=== PATIENT | male | born 2000 | race Caucasian/White ===

== ENCOUNTER 2018-03-23 13:31 | Inpatient (IN) ==
[2018-03-23] MEDS ORDERED: ONDANSETRON INJ 2 MG/ML 2 ML VIAL IV STA (13:43)
[2018-03-23] MEDS ORDERED: SODIUM CHLORIDE 0.9% 1000ML 1,000 ML IV SCH (13:45)
[2018-03-23] MEDS ORDERED: FAMOTIDINE 20MG/5ML IV PUSH IV STA (13:47)
[2018-03-23] MEDS ORDERED: PANTOprazole 40 MG in SYRINGE 0 ML IV ONE (13:47)
[2018-03-23] MEDS ORDERED: SODIUM CHLORIDE 0.9% 1000ML 1,000 ML IV ONE (13:50)
[2018-03-23 13:59] LABS: Basophils # (auto) 0.03 K/uL (0-0.2); Basophils % (auto) 0.6 %; Eosinophils # (auto) 0.06 K/uL (0-0.5); Eosinophils % (auto) 1.2 %; Hematocrit (blood only) 44.4 % (42-52); Hemoglobin 15.4 g/dL (14.0-18.0); Immature Granulocytes # (auto) 0.01 K/uL (0.00-0.02); Immature Granulocytes % (auto) 0.2 %; Lymphocytes # (auto) 2.29 K/uL (1.2-3.4); Lymphocytes % (auto) 44.4 %; Mean Corpuscular Hgb Conc 34.7 g/dL (32-36); Mean Corpuscular Volume 93.1 fL (80-100); Monocytes # (auto) 0.36 K/uL (0.11-0.59); Neutrophils # (auto) 2.41 K/uL (1.4-6.5); Neutrophils % (auto) 46.6 %; Platelet Count 213 K/uL (130-400); RDW Coefficient of Variation 13.2 % (11.5-14.5); RDW Standard Deviation 44.9 fL (36.4-46.3); Red Blood Count 4.77 M/uL (4.7-6.1); White Blood Count 5.16 K/uL (4.8-10.8)
[2018-03-23 14:05] LABS: INR 1.1 (0.9-1.1)
[2018-03-23 14:21] LABS: Alanine Aminotransferase 32 U/L (12-78); Aspartate Aminotransferase 19 U/L (15-37); BUN Creatinine Ratio 15.3 (10-20); Blood Urea Nitrogen 15 mg/dl (7-18); Calcium 8.9 mg/dl (8.5-10.1); Carbon Dioxide 26 mmol/L (21-32); Chloride 109 mmol/L (98-107); Creatinine Clr Calc Pharmacy 129.1 ml/min; Est GFR (Non-African American) 111.3; Glucose 87 mg/dl (70-99); Potassium 3.8 mmol/L (3.5-5.1); Sodium 141 mmol/L (136-145)
[2018-03-23 14:26] LABS: Albumin Globulin Ratio 1.1 (0.9-2); Alkaline Phosphatase 59 U/L (45-117); Bilirubin,Total 0.5 mg/dl (0.2-1); Creatine Kinase 345 U/L (39-308); Globulin 3.6 gm/dl (2.5-4.0); Total Protein 7.6 gm/dl (6.4-8.2); Troponin I < 0.015 ng/ml (0-0.045)
--- NOTE | 2018-03-23 14:27 | Emergency Department Note ---
Entered by Maki Mejias acting as a scribe for Eagle Farooq DO History of Present Illness General Chief complaint: Overdose (Intentional) Source: patient History of Present Illness Onset (ago): hour(s) 1 Location: head (Overdose) Severity: severe Pain Consistency: + other (Sudden) Maximum Pain Intensity: 0 Quality: + other (Overdose) Relieved By: not by medication (Aspirin) Exacerbated By: + movement (Aspirin) Associated symptoms: + nausea/vomiting and + other (Dizziness); no chest pain, no fever/chills and no shortness of breath The patient is a 17-year-old male who presented to the emergency department after an intentional overdose. The patient admits to taking approximately 150 tablets of aspirin. The aspirin was 325 mg strength. He states that he took this overdose at approximately 1230 this afternoon. The patient was feeling very depressed. He is been feeling very depressed for the last few months. He currently moved to [place] to be in college. He previously lived in [place]. He did have similar symptoms in the past and was admitted for mental health evaluation approximately 5 years ago when he was at home in [place]. The patient has been having worsening depression and anxiety. He is feeling alone in college. He states that his symptoms started to worsen over the last 24 hours. He states that he did vomit one time but it was only a small amount of liquid vomit that had some pill fragments in it. He states that he did try to swallow the pill fragments again. The patient called 911 and was brought to the emergency department. He has had no other symptoms of emesis but does state that he feels somewhat dizzy and also has been developing nausea symptoms. The patient denies having any other symptoms as far as chest pain or fever. He denies having any shortness of breath or leg swelling. He denies having any GI upset or back pain. His symptoms are very severe at this time. Home Medications Home Medications Medication Instructions Recorded Confirmed Type No Known Home Medications 03/23/18 03/23/18 History Allergies Allergy/AdvReac Type Severity Reaction Status Date / Time No Known Allergies Allergy Verified 03/23/18 15:03 Past Med/Surg History Medical History Depression Social History Current Living Situation: Alone Current Living Situation Comment: Says he has no social supports here, "never felt a part of a family unit" current occupational status: student current occupation: Works at [employer] Feels Safe at Home: Yes Smoking Status: Never smoker Hx Alcohol Use: Yes Alcohol type: beer Alcohol Intake Frequency: a few times a month Hx Substance Use: No Beliefs That Will Affect Care: None Preferred Language: Jordanian Communication Ability: Effective Blade Aligner Required: No Review of Systems See HPI for pertinent positives & negatives. and A total of 10 systems reviewed and were otherwise negative Physical Exam Vital Signs Vital Signs - 24 hr 03/25/18 11:03 Temperature 36.8 C Pulse Rate [Apical] 70 Respiratory Rate 16 Blood Pressure [Right Arm] 108/64 Pulse Oximetry 96 GENERAL: Patient is awake and alert. He is very flat and appears to be mildly anxious. EYES: The conjunctivae are clear. The pupils are round and reactive. EARS, NOSE, MOUTH AND THROAT: The nose is without any evidence of any deformity. Mucous membranes are moist tongue is midline NECK: The neck is nontender and supple. RESPIRATORY: Normal respiratory effort is noted there is no evidence of wheezing rhonchi or rales CARDIOVASCULAR: Regular rate and rhythm noted there no murmurs rubs or gallops normal S1 normal S2 GASTROINTESTINAL: The abdomen is soft. Bowel sounds are present in all quadrants. Abdomen is nontender MUSCULOSKELETAL/EXTREMITIES: There is no evidence of gross deformity full range of motion is noted in the hips and shoulders SKIN: There is no obvious evidence of any rash. There are no petechiae, pallor or cyanosis noted. NEUROLOGIC: Patient is awake alert and oriented x3 strength is symmetric patellar reflexes are 2+ bilaterally PSYCH: Patient is very guarded appearing. His affect is flat. He is currently admitting to suicidal ideation with the above aforementioned plan. Course 1345: Past medical records reviewed. The patient was evaluated in room B3A, and a complete history and physical examination were performed. 1430: I called poison control who recommended that the patient not receive charcoal in regards to his Aspirin OD. 1446: I spoke to Rissa from poison control who recommends that the patient gets his Aspirin level check again. 1500: I spoke to the nurse at this time who informed me that the patient asked for something for his stomach pain. I will order a GI cocktail. 1632: I spoke with poison control who recommends that the patient be started on a bicarbonate drip. 1642: I reviewed the patient's [facility]. 1646: I spoke with the psychiatric employment case manager who reported that the police filed an active 302 warrant which is on the patients chart at this time. 1650: I reviewed the patient's case with Dr. Ishan RODRIGUEZ diesel powerplant supervisor. 1655: I reviewed the patient's case with [facility] Warner [facility]. He will evaluate the patient for further management. Administered Medications Discontinued Medications Acetaminophen (Tylenol) 650 mg PO Q4H PRN PRN Reason: pain/fever Stop: 04/22/18 19:55 Last Admin: 03/25/18 09:43 Dose: 650 mg Al Hydrox/Mg Hydrox/Simethicone () 1 dose PO ONE ONE Stop: 03/23/18 15:01 Last Admin: 03/23/18 15:07 Dose: 1 dose Famotidine (Pepcid 20mg Iv Push) 20 mg IV ONE STA Stop: 03/23/18 13:48 Last Admin: 03/23/18 14:14 Dose: 20 mg Sodium Chloride (Nss 1000ml) 1,000 mls @ 999 mls/hr IV .Q1H1M BECKA Stop: 03/23/18 14:45 Last Infusion: 03/23/18 15:45 Dose: 0 mls/hr Admin: 03/23/18 15:07 Dose: 999 mls/hr Pantoprazole Sodium 40 mg/ (Syringe) 10 mls @ 5 mls/min IV NOW ONE Stop: 03/23/18 13:48 Last Admin: 03/23/18 14:14 Dose: 5 mls/min Sodium Chloride (Nss 1000ml) 1,000 mls @ 999 mls/hr IV .Q1H1M ONE Stop: 03/23/18 14:50 Last Infusion: 03/23/18 15:09 Dose: 0 mls/hr Admin: 03/23/18 14:08 Dose: 999 mls/hr Sodium Bicarbonate 150 meq/ (Dextrose) 1,150 mls @ 999 mls/hr IV .Q1H10M BECKA Stop: 03/23/18 18:15 Last Infusion: 03/24/18 01:48 Dose: 0 mls/hr Infusion: 03/23/18 17:17 Dose: 999 mls/hr Admin: 03/23/18 17:04 Dose: 250 mls/hr Sodium Bicarbonate 150 meq/ (Dextrose) 1,150 mls @ 250 mls/hr IV .Q4H36M BECKA Stop: 04/22/18 18:14 Last Infusion: 03/24/18 10:32 Dose: 0 mls/hr Admin: 03/24/18 09:55 Dose: Not Given Admin: 03/24/18 06:46 Dose: 250 mls/hr Infusion: 03/24/18 06:27 Dose: 0 mls/hr Infusion: 03/24/18 06:12 Dose: 250 mls/hr Infusion: 03/24/18 03:40 Dose: 150 mls/hr Admin: 03/24/18 00:50 Dose: 250 mls/hr Infusion: 03/23/18 23:13 Dose: 0 mls/hr Admin: 03/23/18 18:37 Dose: 250 mls/hr Promethazine HCl 12.5 mg/ (Sodium Chloride) 50.5 mls @ 202 mls/hr IV NOW STA Stop: 03/23/18 18:59 Last Admin: 03/23/18 18:50 Dose: Not Given Pantoprazole Sodium 40 mg/ (Syringe) 10 mls @ 5 mls/min IV BID BECKA Stop: 04/22/18 20:59 Last Admin: 03/25/18 09:42 Dose: 5 mls/min Admin: 03/24/18 19:27 Dose: 5 mls/min Admin: 03/24/18 07:56 Dose: 5 mls/min Admin: 03/23/18 21:13 Dose: 5 mls/min Dextrose (D5w) 1,000 mls @ 999 mls/hr IV .Q1H1M BECKA Stop: 03/23/18 21:15 Last Infusion: 03/24/18 08:58 Dose: 0 mls/hr Infusion: 03/23/18 21:47 Dose: 0 mls/hr Admin: 03/23/18 21:13 Dose: 999 mls/hr Potassium Chloride (K Lane / Wtr) 10 meq in 100 mls @ 100 mls/hr IV Q1H BECKA Stop: 03/24/18 00:59 Last Infusion: 03/24/18 01:23 Dose: 0 mls/hr Admin: 03/24/18 00:23 Dose: 100 mls/hr Infusion: 03/24/18 00:12 Dose: 0 mls/hr Admin: 03/23/18 23:12 Dose: 100 mls/hr Infusion: 03/23/18 23:12 Dose: 0 mls/hr Admin: 03/23/18 22:14 Dose: 100 mls/hr Infusion: 03/23/18 22:12 Dose: 0 mls/hr Admin: 03/23/18 21:12 Dose: 100 mls/hr Potassium Chloride (K Lane / Wtr) 10 meq in 100 mls @ 100 mls/hr IV Q1H BECKA Stop: 03/24/18 07:34 Last Infusion: 03/24/18 07:56 Dose: 0 mls/hr Admin: 03/24/18 06:47 Dose: 100 mls/hr Infusion: 03/24/18 06:45 Dose: 0 mls/hr Admin: 03/24/18 05:45 Dose: 100 mls/hr Infusion: 03/24/18 05:39 Dose: 0 mls/hr Admin: 03/24/18 04:39 Dose: 100 mls/hr Infusion: 03/24/18 04:39 Dose: 0 mls/hr Admin: 03/24/18 03:44 Dose: 100 mls/hr Calcium Chloride 1,000 mg/ (Sodium Chloride) 60 mls @ 240 mls/hr IV NOW STA Stop: 03/24/18 07:45 Last Infusion: 03/24/18 08:06 Dose: 0 mls/hr Admin: 03/24/18 07:50 Dose: 240 mls/hr Dextrose/Sodium Chloride (D5w And Nss) 1,000 mls @ 125 mls/hr IV .Q8H BECKA Stop: 04/23/18 10:59 Last Admin: 03/25/18 03:23 Dose: 125 mls/hr Infusion: 03/25/18 03:23 Dose: 125 mls/hr Admin: 03/24/18 19:26 Dose: 125 mls/hr Infusion: 03/24/18 18:58 Dose: 125 mls/hr Admin: 03/24/18 10:58 Dose: 125 mls/hr Ondansetron HCl (Zofran) 4 mg IV NOW STA Stop: 03/23/18 13:44 Last Admin: 03/23/18 14:14 Dose: 4 mg Potassium Chloride (Klor-Con Pwd) 60 meq PO ONCE STA Stop: 03/23/18 19:57 Last Admin: 03/23/18 21:57 Dose: Not Given Potassium Chloride (Klor-Con Pwd) 60 meq PO ONCE STA Stop: 03/24/18 00:38 Last Admin: 03/24/18 00:51 Dose: 60 meq Potassium Chloride (Klor-Con Pwd) 20 meq PO ONCE STA Stop: 03/24/18 03:35 Last Admin: 03/24/18 03:43 Dose: 20 meq Potassium Chloride (Klor-Con Pwd) 20 meq PO ONCE STA Stop: 03/24/18 06:45 Last Admin: 03/24/18 06:47 Dose: 20 meq Potassium Chloride (Klor-Con M10) 40 meq PO NOW STA Stop: 03/24/18 10:44 Last Admin: 03/24/18 10:59 Dose: 40 meq Promethazine HCl (Phenergan) Confirm Administered Dose 12.5 mg IV .[employer] ONE Stop: 03/23/18 18:50 Last Admin: 03/23/18 18:50 Dose: 12.5 mg Medical Decision Making Differential Diagnosis Etiologies such as mood disorder, toxicologic, infection, hypoglycemia, electrolyte abnormalities, cardiac sources, intracerebral event, neurologic, as well as others were entertained. Medical Records Attestation: I reviewed the patient's medical records. Home Medications Current Medication List: was personally reviewed by me Laboratory Data Attestation: I reviewed the patient's lab results. Result diagrams: 03/24/18 05:54 03/25/18 08:23 Lab Results 03/23/18 03/23/18 03/23/18 Range/Units 13:22 13:22 13:22 WBC 5.16 (4.8-10.8) K/uL RBC 4.77 (4.7-6.1) M/uL Hgb 15.4 (14.0-18.0) g/dL Hct 44.4 (42-52) % MCV 93.1 (80-100) fL MCH 32.3 (25-34) pg MCHC 34.7 (32-36) g/dL RDW Std Deviation 44.9 (36.4-46.3) fL RDW Coeff of Mani 13.2 (11.5-14.5) % Plt Count 213 (130-400) K/uL MPV 11.0 H (7.4-10.4) fL Immature Gran % (Auto) 0.2 % Neut % (Auto) 46.6 % Lymph % (Auto) 44.4 % Bowie % (Auto) 7.0 % Eos % (Auto) 1.2 % Baso % (Auto) 0.6 % Immature Gran # (Auto) 0.01 (0.00-0.02) K/uL Neut # (Auto) 2.41 (1.4-6.5) K/uL Lymph # (Auto) 2.29 (1.2-3.4) K/uL Bowie # (Auto) 0.36 (0.11-0.59) K/uL Eos # (Auto) 0.06 (0-0.5) K/uL Baso # (Auto) 0.03 (0-0.2) K/uL PT 11.0 (9.0-12.0) Seconds INR 1.1 (0.9-1.1) VBG pH (7.36-7.41) VBG pCO2 (38-50) mmHg VBG pO2 mmHg VBG HCO3 mmol/L VBG O2 Saturation % VBG Base Excess mEq/L Barometric Pressure mm/Hg Sodium 141 (136-145) mmol/L Potassium 3.8 (3.5-5.1) mmol/L Chloride 109 H (98-107) mmol/L Carbon Dioxide 26 (21-32) mmol/L Anion Gap 6.0 (3-11) BUN 15 (7-18) mg/dl Creatinine 0.98 (0.6-1.4) mg/dl Est Cr Clr Drug Dosing 129.1 ml/min Est GFR ( Amer) 129.0 Est GFR (Non-Af Amer) 111.3 BUN/Creatinine Ratio 15.3 (10-20) Glucose 87 (70-99) mg/dl Lactate (0.4-2.0) mmol/L Calcium 8.9 (8.5-10.1) mg/dl Phosphorus (2.5-4.9) mg/dl Magnesium 2.0 (1.8-2.4) mg/dl Total Bilirubin 0.5 (0.2-1) mg/dl AST 19 (15-37) U/L ALT 32 (12-78) U/L Alkaline Phosphatase 59 (45-117) U/L Total Creatine Kinase 345 H (39-308) U/L Troponin I < 0.015 (0-0.045) ng/ml Total Protein 7.6 (6.4-8.2) gm/dl Albumin 4.0 (3.4-5.0) gm/dl Globulin 3.6 (2.5-4.0) gm/dl Albumin/Globulin Ratio 1.1 (0.9-2) Lipase 61 L (73-393) U/L Urine Color Urine Appearance (Clear) Urine pH (4.5-7.5) Ur Specific Jackson (1.000-1.030) Urine Protein (Negative) Urine Glucose (UA) (Negative) Urine Ketones (Negative) Urine Blood (Negative) Urine Nitrite (Negative) Urine Bilirubin (Negative) Urine Urobilinogen (Negative) Ur Leukocyte Esterase (Negative) Urine WBC (Auto) (0-5) /hpf Urine RBC (Auto) (0-4) /hpf U Hyaline Cast (Auto) (0-5) /lpf U Epithel Cells (Auto) (0-5) /lpf Urine Bacteria (Auto) (Negative) Ur Renal Epithelial Cell Amorphous Sediment (None Prsent) Nasal Screen MRSA (PCR) (Negative) Salicylates (2.8-20) mg/dl Urine Opiates Screen (Neg) Ur Methadone, Qual (Neg) Acetaminophen (10-30) ug/ml Urine Barbiturates (Neg) Ur Phencyclidine (PCP) (Neg) U Amphetamin/Meth Scrn (Neg) MDMA (Ecstasy) Screen (Neg) U Benzodiazepines Scrn (Neg) Ur Cocaine Metabolite (Neg) U Marijuana (THC) Screen (Neg) Ethyl Alcohol mg/dL (0-3) mg/dl 03/23/18 03/23/18 03/23/18 Range/Units 13:22 14:03 14:03 WBC (4.8-10.8) K/uL RBC (4.7-6.1) M/uL Hgb (14.0-18.0) g/dL Hct (42-52) % MCV (80-100) fL MCH (25-34) pg MCHC (32-36) g/dL RDW Std Deviation (36.4-46.3) fL RDW Coeff of Mani (11.5-14.5) % Plt Count (130-400) K/uL MPV (7.4-10.4) fL Immature Gran % (Auto) % Neut % (Auto) % Lymph % (Auto) % Bowie % (Auto) % Eos % (Auto) % Baso % (Auto) % Immature Gran # (Auto) (0.00-0.02) K/uL Neut # (Auto) (1.4-6.5) K/uL Lymph # (Auto) (1.2-3.4) K/uL Bowie # (Auto) (0.11-0.59) K/uL Eos # (Auto) (0-0.5) K/uL Baso # (Auto) (0-0.2) K/uL PT (9.0-12.0) Seconds INR (0.9-1.1) VBG pH 7.40 (7.36-7.41) VBG pCO2 43 (38-50) mmHg VBG pO2 37 mmHg VBG HCO3 26 mmol/L VBG O2 Saturation 70.5 % VBG Base Excess 1.3 mEq/L Barometric Pressure 730.9 mm/Hg Sodium (136-145) mmol/L Potassium (3.5-5.1) mmol/L Chloride (98-107) mmol/L Carbon Dioxide (21-32) mmol/L Anion Gap (3-11) BUN (7-18) mg/dl Creatinine (0.6-1.4) mg/dl Est Cr Clr Drug Dosing ml/min Est GFR ( Amer) Est GFR (Non-Af Amer) BUN/Creatinine Ratio (10-20) Glucose (70-99) mg/dl Lactate (0.4-2.0) mmol/L Calcium (8.5-10.1) mg/dl Phosphorus (2.5-4.9) mg/dl Magnesium (1.8-2.4) mg/dl Total Bilirubin (0.2-1) mg/dl AST (15-37) U/L ALT (12-78) U/L Alkaline Phosphatase (45-117) U/L Total Creatine Kinase (39-308) U/L Troponin I (0-0.045) ng/ml Total Protein (6.4-8.2) gm/dl Albumin (3.4-5.0) gm/dl Globulin (2.5-4.0) gm/dl Albumin/Globulin Ratio (0.9-2) Lipase (73-393) U/L Urine Color Urine Appearance (Clear) Urine pH (4.5-7.5) Ur Specific Jackson (1.000-1.030) Urine Protein (Negative) Urine Glucose (UA) (Negative) Urine Ketones (Negative) Urine Blood (Negative) Urine Nitrite (Negative) Urine Bilirubin (Negative) Urine Urobilinogen (Negative) Ur Leukocyte Esterase (Negative) Urine WBC (Auto) (0-5) /hpf Urine RBC (Auto) (0-4) /hpf U Hyaline Cast (Auto) (0-5) /lpf U Epithel Cells (Auto) (0-5) /lpf Urine Bacteria (Auto) (Negative) Ur Renal Epithelial Cell Amorphous Sediment (None Prsent) Nasal Screen MRSA (PCR) (Negative) Salicylates 18.9 (2.8-20) mg/dl Urine Opiates Screen (Neg) Ur Methadone, Qual (Neg) Acetaminophen < 2 L (10-30) ug/ml Urine Barbiturates (Neg) Ur Phencyclidine (PCP) (Neg) U Amphetamin/Meth Scrn (Neg) MDMA (Ecstasy) Screen (Neg) U Benzodiazepines Scrn (Neg) Ur Cocaine Metabolite (Neg) U Marijuana (THC) Screen (Neg) Ethyl Alcohol mg/dL < 3.0 (0-3) mg/dl 03/23/18 03/23/18 03/23/18 Range/Units 14:03 14:44 15:24 WBC (4.8-10.8) K/uL RBC (4.7-6.1) M/uL Hgb (14.0-18.0) g/dL Hct (42-52) % MCV (80-100) fL MCH (25-34) pg MCHC (32-36) g/dL RDW Std Deviation (36.4-46.3) fL RDW Coeff of Mani (11.5-14.5) % Plt Count (130-400) K/uL MPV (7.4-10.4) fL Immature Gran % (Auto) % Neut % (Auto) % Lymph % (Auto) % Bowie % (Auto) % Eos % (Auto) % Baso % (Auto) % Immature Gran # (Auto) (0.00-0.02) K/uL Neut # (Auto) (1.4-6.5) K/uL Lymph # (Auto) (1.2-3.4) K/uL Bowie # (Auto) (0.11-0.59) K/uL Eos # (Auto) (0-0.5) K/uL Baso # (Auto) (0-0.2) K/uL PT (9.0-12.0) Seconds INR (0.9-1.1) VBG pH (7.36-7.41) VBG pCO2 (38-50) mmHg VBG pO2 mmHg VBG HCO3 mmol/L VBG O2 Saturation % VBG Base Excess mEq/L Barometric Pressure mm/Hg Sodium (136-145) mmol/L Potassium (3.5-5.1) mmol/L Chloride (98-107) mmol/L Carbon Dioxide (21-32) mmol/L Anion Gap (3-11) BUN (7-18) mg/dl Creatinine (0.6-1.4) mg/dl Est Cr Clr Drug Dosing ml/min Est GFR ( Amer) Est GFR (Non-Af Amer) BUN/Creatinine Ratio (10-20) Glucose (70-99) mg/dl Lactate 1.1 (0.4-2.0) mmol/L Calcium (8.5-10.1) mg/dl Phosphorus (2.5-4.9) mg/dl Magnesium (1.8-2.4) mg/dl Total Bilirubin (0.2-1) mg/dl AST (15-37) U/L ALT (12-78) U/L Alkaline Phosphatase (45-117) U/L Total Creatine Kinase (39-308) U/L Troponin I (0-0.045) ng/ml Total Protein (6.4-8.2) gm/dl Albumin (3.4-5.0) gm/dl Globulin (2.5-4.0) gm/dl Albumin/Globulin Ratio (0.9-2) Lipase (73-393) U/L Urine Color Urine Appearance (Clear) Urine pH 7.0 (4.5-7.5) Ur Specific Jackson (1.000-1.030) Urine Protein (Negative) Urine Glucose (UA) (Negative) Urine Ketones (Negative) Urine Blood (Negative) Urine Nitrite (Negative) Urine Bilirubin (Negative) Urine Urobilinogen (Negative) Ur Leukocyte Esterase (Negative) Urine WBC (Auto) (0-5) /hpf Urine RBC (Auto) (0-4) /hpf U Hyaline Cast (Auto) (0-5) /lpf U Epithel Cells (Auto) (0-5) /lpf Urine Bacteria (Auto) (Negative) Ur Renal Epithelial Cell Amorphous Sediment (None Prsent) Nasal Screen MRSA (PCR) (Negative) Salicylates (2.8-20) mg/dl Urine Opiates Screen Neg (Neg) Ur Methadone, Qual Neg (Neg) Acetaminophen (10-30) ug/ml Urine Barbiturates Neg (Neg) Ur Phencyclidine (PCP) Neg (Neg) U Amphetamin/Meth Scrn Neg (Neg) MDMA (Ecstasy) Screen Neg (Neg) U Benzodiazepines Scrn Neg (Neg) Ur Cocaine Metabolite Neg (Neg) U Marijuana (THC) Screen Neg (Neg) Ethyl Alcohol mg/dL (0-3) mg/dl 03/23/18 03/23/18 03/23/18 Range/Units 15:34 18:51 18:51 WBC (4.8-10.8) K/uL RBC (4.7-6.1) M/uL Hgb (14.0-18.0) g/dL Hct (42-52) % MCV (80-100) fL MCH (25-34) pg MCHC (32-36) g/dL RDW Std Deviation (36.4-46.3) fL RDW Coeff of Mani (11.5-14.5) % Plt Count (130-400) K/uL MPV (7.4-10.4) fL Immature Gran % (Auto) % Neut % (Auto) % Lymph % (Auto) % Bowie % (Auto) % Eos % (Auto) % Baso % (Auto) % Immature Gran # (Auto) (0.00-0.02) K/uL Neut # (Auto) (1.4-6.5) K/uL Lymph # (Auto) (1.2-3.4) K/uL Bowie # (Auto) (0.11-0.59) K/uL Eos # (Auto) (0-0.5) K/uL Baso # (Auto) (0-0.2) K/uL PT (9.0-12.0) Seconds INR (0.9-1.1) VBG pH (7.36-7.41) VBG pCO2 (38-50) mmHg VBG pO2 mmHg VBG HCO3 mmol/L VBG O2 Saturation % VBG Base Excess mEq/L Barometric Pressure mm/Hg Sodium (136-145) mmol/L Potassium 3.3 L (3.5-5.1) mmol/L Chloride (98-107) mmol/L Carbon Dioxide (21-32) mmol/L Anion Gap (3-11) BUN (7-18) mg/dl Creatinine (0.6-1.4) mg/dl Est Cr Clr Drug Dosing ml/min Est GFR ( Amer) Est GFR (Non-Af Amer) BUN/Creatinine Ratio (10-20) Glucose (70-99) mg/dl Lactate (0.4-2.0) mmol/L Calcium (8.5-10.1) mg/dl Phosphorus (2.5-4.9) mg/dl Magnesium (1.8-2.4) mg/dl Total Bilirubin (0.2-1) mg/dl AST (15-37) U/L ALT (12-78) U/L Alkaline Phosphatase (45-117) U/L Total Creatine Kinase (39-308) U/L Troponin I (0-0.045) ng/ml Total Protein (6.4-8.2) gm/dl Albumin (3.4-5.0) gm/dl Globulin (2.5-4.0) gm/dl Albumin/Globulin Ratio (0.9-2) Lipase (73-393) U/L Urine Color Urine Appearance (Clear) Urine pH (4.5-7.5) Ur Specific Jackson (1.000-1.030) Urine Protein (Negative) Urine Glucose (UA) (Negative) Urine Ketones (Negative) Urine Blood (Negative) Urine Nitrite (Negative) Urine Bilirubin (Negative) Urine Urobilinogen (Negative) Ur Leukocyte Esterase (Negative) Urine WBC (Auto) (0-5) /hpf Urine RBC (Auto) (0-4) /hpf U Hyaline Cast (Auto) (0-5) /lpf U Epithel Cells (Auto) (0-5) /lpf Urine Bacteria (Auto) (Negative) Ur Renal Epithelial Cell Amorphous Sediment (None Prsent) Nasal Screen MRSA (PCR) (Negative) Salicylates 31.0 H* 64.6 H* (2.8-20) mg/dl Urine Opiates Screen (Neg) Ur Methadone, Qual (Neg) Acetaminophen (10-30) ug/ml Urine Barbiturates (Neg) Ur Phencyclidine (PCP) (Neg) U Amphetamin/Meth Scrn (Neg) MDMA (Ecstasy) Screen (Neg) U Benzodiazepines Scrn (Neg) Ur Cocaine Metabolite (Neg) U Marijuana (THC) Screen (Neg) Ethyl Alcohol mg/dL (0-3) mg/dl 03/23/18 03/23/18 03/23/18 Range/Units 18:51 19:57 19:57 WBC (4.8-10.8) K/uL RBC (4.7-6.1) M/uL Hgb (14.0-18.0) g/dL Hct (42-52) % MCV (80-100) fL MCH (25-34) pg MCHC (32-36) g/dL RDW Std Deviation (36.4-46.3) fL RDW Coeff of Mani (11.5-14.5) % Plt Count (130-400) K/uL MPV (7.4-10.4) fL Immature Gran % (Auto) % Neut % (Auto) % Lymph % (Auto) % Bowie % (Auto) % Eos % (Auto) % Baso % (Auto) % Immature Gran # (Auto) (0.00-0.02) K/uL Neut # (Auto) (1.4-6.5) K/uL Lymph # (Auto) (1.2-3.4) K/uL Bowie # (Auto) (0.11-0.59) K/uL Eos # (Auto) (0-0.5) K/uL Baso # (Auto) (0-0.2) K/uL PT (9.0-12.0) Seconds INR (0.9-1.1) VBG pH 7.46 H 7.46 H (7.36-7.41) VBG pCO2 35 L (38-50) mmHg VBG pO2 34 mmHg VBG HCO3 24 mmol/L VBG O2 Saturation 68.4 % VBG Base Excess 0.9 mEq/L Barometric Pressure 730.8 mm/Hg Sodium 140 (136-145) mmol/L Potassium 3.2 L (3.5-5.1) mmol/L Chloride 113 H (98-107) mmol/L Carbon Dioxide 25 (21-32) mmol/L Anion Gap 2.0 L (3-11) BUN 13 (7-18) mg/dl Creatinine 1.12 (0.6-1.4) mg/dl Est Cr Clr Drug Dosing 113.0 ml/min Est GFR ( Amer) 109.8 Est GFR (Non-Af Amer) 94.7 BUN/Creatinine Ratio 11.2 (10-20) Glucose 102 H (70-99) mg/dl Lactate (0.4-2.0) mmol/L Calcium 7.9 L (8.5-10.1) mg/dl Phosphorus (2.5-4.9) mg/dl Magnesium (1.8-2.4) mg/dl Total Bilirubin (0.2-1) mg/dl AST (15-37) U/L ALT (12-78) U/L Alkaline Phosphatase (45-117) U/L Total Creatine Kinase (39-308) U/L Troponin I (0-0.045) ng/ml Total Protein (6.4-8.2) gm/dl Albumin (3.4-5.0) gm/dl Globulin (2.5-4.0) gm/dl Albumin/Globulin Ratio (0.9-2) Lipase (73-393) U/L Urine Color Urine Appearance (Clear) Urine pH (4.5-7.5) Ur Specific Jackson (1.000-1.030) Urine Protein (Negative) Urine Glucose (UA) (Negative) Urine Ketones (Negative) Urine Blood (Negative) Urine Nitrite (Negative) Urine Bilirubin (Negative) Urine Urobilinogen (Negative) Ur Leukocyte Esterase (Negative) Urine WBC (Auto) (0-5) /hpf Urine RBC (Auto) (0-4) /hpf U Hyaline Cast (Auto) (0-5) /lpf U Epithel Cells (Auto) (0-5) /lpf Urine Bacteria (Auto) (Negative) Ur Renal Epithelial Cell Amorphous Sediment (None Prsent) Nasal Screen MRSA (PCR) (Negative) Salicylates (2.8-20) mg/dl Urine Opiates Screen (Neg) Ur Methadone, Qual (Neg) Acetaminophen (10-30) ug/ml Urine Barbiturates (Neg) Ur Phencyclidine (PCP) (Neg) U Amphetamin/Meth Scrn (Neg) MDMA (Ecstasy) Screen (Neg) U Benzodiazepines Scrn (Neg) Ur Cocaine Metabolite (Neg) U Marijuana (THC) Screen (Neg) Ethyl Alcohol mg/dL (0-3) mg/dl 03/23/18 03/23/18 03/23/18 Range/Units 20:10 21:16 23:03 WBC (4.8-10.8) K/uL RBC (4.7-6.1) M/uL Hgb (14.0-18.0) g/dL Hct (42-52) % MCV (80-100) fL MCH (25-34) pg MCHC (32-36) g/dL RDW Std Deviation (36.4-46.3) fL RDW Coeff of Mani (11.5-14.5) % Plt Count (130-400) K/uL MPV (7.4-10.4) fL Immature Gran % (Auto) % Neut % (Auto) % Lymph % (Auto) % Bowie % (Auto) % Eos % (Auto) % Baso % (Auto) % Immature Gran # (Auto) (0.00-0.02) K/uL Neut # (Auto) (1.4-6.5) K/uL Lymph # (Auto) (1.2-3.4) K/uL Bowie # (Auto) (0.11-0.59) K/uL Eos # (Auto) (0-0.5) K/uL Baso # (Auto) (0-0.2) K/uL PT (9.0-12.0) Seconds INR (0.9-1.1) VBG pH 7.47 H (7.36-7.41) VBG pCO2 33 L (38-50) mmHg VBG pO2 37 mmHg VBG HCO3 24 mmol/L VBG O2 Saturation 73.0 % VBG Base Excess 0.8 mEq/L Barometric Pressure mm/Hg Sodium (136-145) mmol/L Potassium (3.5-5.1) mmol/L Chloride (98-107) mmol/L Carbon Dioxide (21-32) mmol/L Anion Gap (3-11) BUN (7-18) mg/dl Creatinine (0.6-1.4) mg/dl Est Cr Clr Drug Dosing ml/min Est GFR ( Amer) Est GFR (Non-Af Amer) BUN/Creatinine Ratio (10-20) Glucose (70-99) mg/dl Lactate (0.4-2.0) mmol/L Calcium (8.5-10.1) mg/dl Phosphorus (2.5-4.9) mg/dl Magnesium (1.8-2.4) mg/dl Total Bilirubin (0.2-1) mg/dl AST (15-37) U/L ALT (12-78) U/L Alkaline Phosphatase (45-117) U/L Total Creatine Kinase (39-308) U/L Troponin I (0-0.045) ng/ml Total Protein (6.4-8.2) gm/dl Albumin (3.4-5.0) gm/dl Globulin (2.5-4.0) gm/dl Albumin/Globulin Ratio (0.9-2) Lipase (73-393) U/L Urine Color Urine Appearance (Clear) Urine pH (4.5-7.5) Ur Specific Jackson (1.000-1.030) Urine Protein (Negative) Urine Glucose (UA) (Negative) Urine Ketones (Negative) Urine Blood (Negative) Urine Nitrite (Negative) Urine Bilirubin (Negative) Urine Urobilinogen (Negative) Ur Leukocyte Esterase (Negative) Urine WBC (Auto) (0-5) /hpf Urine RBC (Auto) (0-4) /hpf U Hyaline Cast (Auto) (0-5) /lpf U Epithel Cells (Auto) (0-5) /lpf Urine Bacteria (Auto) (Negative) Ur Renal Epithelial Cell Amorphous Sediment (None Prsent) Nasal Screen MRSA (PCR) Negative (Negative) Salicylates 59.4 H* (2.8-20) mg/dl Urine Opiates Screen (Neg) Ur Methadone, Qual (Neg) Acetaminophen (10-30) ug/ml Urine Barbiturates (Neg) Ur Phencyclidine (PCP) (Neg) U Amphetamin/Meth Scrn (Neg) MDMA (Ecstasy) Screen (Neg) U Benzodiazepines Scrn (Neg) Ur Cocaine Metabolite (Neg) U Marijuana (THC) Screen (Neg) Ethyl Alcohol mg/dL (0-3) mg/dl 03/23/18 03/23/18 03/23/18 Range/Units 23:03 23:03 Unknown WBC (4.8-10.8) K/uL RBC (4.7-6.1) M/uL Hgb (14.0-18.0) g/dL Hct (42-52) % MCV (80-100) fL MCH (25-34) pg MCHC (32-36) g/dL RDW Std Deviation (36.4-46.3) fL RDW Coeff of Mani (11.5-14.5) % Plt Count (130-400) K/uL MPV (7.4-10.4) fL Immature Gran % (Auto) % Neut % (Auto) % Lymph % (Auto) % Bowie % (Auto) % Eos % (Auto) % Baso % (Auto) % Immature Gran # (Auto) (0.00-0.02) K/uL Neut # (Auto) (1.4-6.5) K/uL Lymph # (Auto) (1.2-3.4) K/uL Bowie # (Auto) (0.11-0.59) K/uL Eos # (Auto) (0-0.5) K/uL Baso # (Auto) (0-0.2) K/uL PT (9.0-12.0) Seconds INR (0.9-1.1) VBG pH (7.36-7.41) VBG pCO2 (38-50) mmHg VBG pO2 mmHg VBG HCO3 mmol/L VBG O2 Saturation % VBG Base Excess mEq/L Barometric Pressure mm/Hg Sodium 141 (136-145) mmol/L Potassium 3.1 L (3.5-5.1) mmol/L Chloride 112 H (98-107) mmol/L Carbon Dioxide 25 (21-32) mmol/L Anion Gap 4.0 (3-11) BUN 13 (7-18) mg/dl Creatinine 1.22 (0.6-1.4) mg/dl Est Cr Clr Drug Dosing 103.7 ml/min Est GFR ( Amer) 99.0 Est GFR (Non-Af Amer) 85.4 BUN/Creatinine Ratio 10.6 (10-20) Glucose 122 H (70-99) mg/dl Lactate (0.4-2.0) mmol/L Calcium 7.1 L (8.5-10.1) mg/dl Phosphorus (2.5-4.9) mg/dl Magnesium 2.0 (1.8-2.4) mg/dl Total Bilirubin (0.2-1) mg/dl AST (15-37) U/L ALT (12-78) U/L Alkaline Phosphatase (45-117) U/L Total Creatine Kinase (39-308) U/L Troponin I (0-0.045) ng/ml Total Protein (6.4-8.2) gm/dl Albumin (3.4-5.0) gm/dl Globulin (2.5-4.0) gm/dl Albumin/Globulin Ratio (0.9-2) Lipase (73-393) U/L Urine Color Yellow Urine Appearance Turbid H (Clear) Urine pH >= 9.0 H (4.5-7.5) Ur Specific Jackson 1.017 (1.000-1.030) Urine Protein 1+ H (Negative) Urine Glucose (UA) Trace H (Negative) Urine Ketones Negative (Negative) Urine Blood Negative (Negative) Urine Nitrite Negative (Negative) Urine Bilirubin Negative (Negative) Urine Urobilinogen Negative (Negative) Ur Leukocyte Esterase Negative (Negative) Urine WBC (Auto) 1-5 (0-5) /hpf Urine RBC (Auto) 0-4 (0-4) /hpf U Hyaline Cast (Auto) 1-5 (0-5) /lpf U Epithel Cells (Auto) >30 H (0-5) /lpf Urine Bacteria (Auto) Negative (Negative) Ur Renal Epithelial Cell Not Reportable Amorphous Sediment Present H (None Prsent) Nasal Screen MRSA (PCR) (Negative) Salicylates 51.3 H* (2.8-20) mg/dl Urine Opiates Screen (Neg) Ur Methadone, Qual (Neg) Acetaminophen (10-30) ug/ml Urine Barbiturates (Neg) Ur Phencyclidine (PCP) (Neg) U Amphetamin/Meth Scrn (Neg) MDMA (Ecstasy) Screen (Neg) U Benzodiazepines Scrn (Neg) Ur Cocaine Metabolite (Neg) U Marijuana (THC) Screen (Neg) Ethyl Alcohol mg/dL (0-3) mg/dl 03/24/18 03/24/18 03/24/18 Range/Units 02:13 02:13 04:37 WBC (4.8-10.8) K/uL RBC (4.7-6.1) M/uL Hgb (14.0-18.0) g/dL Hct (42-52) % MCV (80-100) fL MCH (25-34) pg MCHC (32-36) g/dL RDW Std Deviation (36.4-46.3) fL RDW Coeff of Mani (11.5-14.5) % Plt Count (130-400) K/uL MPV (7.4-10.4) fL Immature Gran % (Auto) % Neut % (Auto) % Lymph % (Auto) % Bowie % (Auto) % Eos % (Auto) % Baso % (Auto) % Immature Gran # (Auto) (0.00-0.02) K/uL Neut # (Auto) (1.4-6.5) K/uL Lymph # (Auto) (1.2-3.4) K/uL Bowie # (Auto) (0.11-0.59) K/uL Eos # (Auto) (0-0.5) K/uL Baso # (Auto) (0-0.2) K/uL PT (9.0-12.0) Seconds INR (0.9-1.1) VBG pH 7.44 H (7.36-7.41) VBG pCO2 37 L (38-50) mmHg VBG pO2 72 mmHg VBG HCO3 25 mmol/L VBG O2 Saturation 94.7 % VBG Base Excess 0.8 mEq/L Barometric Pressure mm/Hg Sodium 140 (136-145) mmol/L Potassium 3.2 L (3.5-5.1) mmol/L Chloride 111 H (98-107) mmol/L Carbon Dioxide 24 (21-32) mmol/L Anion Gap 5.0 (3-11) BUN 12 (7-18) mg/dl Creatinine 1.22 (0.6-1.4) mg/dl Est Cr Clr Drug Dosing 103.7 ml/min Est GFR ( Amer) 99.0 Est GFR (Non-Af Amer) 85.4 BUN/Creatinine Ratio 10.0 (10-20) Glucose 137 H (70-99) mg/dl Lactate (0.4-2.0) mmol/L Calcium 7.1 L (8.5-10.1) mg/dl Phosphorus (2.5-4.9) mg/dl Magnesium (1.8-2.4) mg/dl Total Bilirubin (0.2-1) mg/dl AST (15-37) U/L ALT (12-78) U/L Alkaline Phosphatase (45-117) U/L Total Creatine Kinase (39-308) U/L Troponin I (0-0.045) ng/ml Total Protein (6.4-8.2) gm/dl Albumin (3.4-5.0) gm/dl Globulin (2.5-4.0) gm/dl Albumin/Globulin Ratio (0.9-2) Lipase (73-393) U/L Urine Color Urine Appearance (Clear) Urine pH (4.5-7.5) Ur Specific Jackson (1.000-1.030) Urine Protein (Negative) Urine Glucose (UA) (Negative) Urine Ketones (Negative) Urine Blood (Negative) Urine Nitrite (Negative) Urine Bilirubin (Negative) Urine Urobilinogen (Negative) Ur Leukocyte Esterase (Negative) Urine WBC (Auto) (0-5) /hpf Urine RBC (Auto) (0-4) /hpf U Hyaline Cast (Auto) (0-5) /lpf U Epithel Cells (Auto) (0-5) /lpf Urine Bacteria (Auto) (Negative) Ur Renal Epithelial Cell Amorphous Sediment (None Prsent) Nasal Screen MRSA (PCR) (Negative) Salicylates 43.8 H* (2.8-20) mg/dl Urine Opiates Screen (Neg) Ur Methadone, Qual (Neg) Acetaminophen (10-30) ug/ml Urine Barbiturates (Neg) Ur Phencyclidine (PCP) (Neg) U Amphetamin/Meth Scrn (Neg) MDMA (Ecstasy) Screen (Neg) U Benzodiazepines Scrn (Neg) Ur Cocaine Metabolite (Neg) U Marijuana (THC) Screen (Neg) Ethyl Alcohol mg/dL (0-3) mg/dl 03/24/18 03/24/18 03/24/18 Range/Units 05:54 05:54 05:54 WBC 10.48 (4.8-10.8) K/uL RBC 4.03 L (4.7-6.1) M/uL Hgb 13.0 L (14.0-18.0) g/dL Hct 37.2 L (42-52) % MCV 92.3 (80-100) fL MCH 32.3 (25-34) pg MCHC 34.9 (32-36) g/dL RDW Std Deviation 44.5 (36.4-46.3) fL RDW Coeff of Mani 13.2 (11.5-14.5) % Plt Count 191 (130-400) K/uL MPV 10.6 H (7.4-10.4) fL Immature Gran % (Auto) % Neut % (Auto) % Lymph % (Auto) % Bowie % (Auto) % Eos % (Auto) % Baso % (Auto) % Immature Gran # (Auto) (0.00-0.02) K/uL Neut # (Auto) (1.4-6.5) K/uL Lymph # (Auto) (1.2-3.4) K/uL Bowie # (Auto) (0.11-0.59) K/uL Eos # (Auto) (0-0.5) K/uL Baso # (Auto) (0-0.2) K/uL PT 12.7 H (9.0-12.0) Seconds INR 1.3 H (0.9-1.1) VBG pH (7.36-7.41) VBG pCO2 (38-50) mmHg VBG pO2 mmHg VBG HCO3 mmol/L VBG O2 Saturation % VBG Base Excess mEq/L Barometric Pressure mm/Hg Sodium 141 (136-145) mmol/L Potassium 3.5 (3.5-5.1) mmol/L Chloride 111 H (98-107) mmol/L Carbon Dioxide 26 (21-32) mmol/L Anion Gap 4.0 (3-11) BUN 13 (7-18) mg/dl Creatinine 1.40 (0.6-1.4) mg/dl Est Cr Clr Drug Dosing 90.4 ml/min Est GFR ( Amer) 83.8 Est GFR (Non-Af Amer) 72.3 BUN/Creatinine Ratio 9.1 L (10-20) Glucose 107 H (70-99) mg/dl Lactate (0.4-2.0) mmol/L Calcium 6.5 L (8.5-10.1) mg/dl Phosphorus 4.4 (2.5-4.9) mg/dl Magnesium 2.0 (1.8-2.4) mg/dl Total Bilirubin 0.3 (0.2-1) mg/dl AST 16 (15-37) U/L ALT 41 (12-78) U/L Alkaline Phosphatase 48 (45-117) U/L Total Creatine Kinase (39-308) U/L Troponin I (0-0.045) ng/ml Total Protein 6.0 L D (6.4-8.2) gm/dl Albumin 3.0 L (3.4-5.0) gm/dl Globulin 3.0 (2.5-4.0) gm/dl Albumin/Globulin Ratio 1.0 (0.9-2) Lipase (73-393) U/L Urine Color Urine Appearance (Clear) Urine pH (4.5-7.5) Ur Specific Jackson (1.000-1.030) Urine Protein (Negative) Urine Glucose (UA) (Negative) Urine Ketones (Negative) Urine Blood (Negative) Urine Nitrite (Negative) Urine Bilirubin (Negative) Urine Urobilinogen (Negative) Ur Leukocyte Esterase (Negative) Urine WBC (Auto) (0-5) /hpf Urine RBC (Auto) (0-4) /hpf U Hyaline Cast (Auto) (0-5) /lpf U Epithel Cells (Auto) (0-5) /lpf Urine Bacteria (Auto) (Negative) Ur Renal Epithelial Cell Amorphous Sediment (None Prsent) Nasal Screen MRSA (PCR) (Negative) Salicylates (2.8-20) mg/dl Urine Opiates Screen (Neg) Ur Methadone, Qual (Neg) Acetaminophen (10-30) ug/ml Urine Barbiturates (Neg) Ur Phencyclidine (PCP) (Neg) U Amphetamin/Meth Scrn (Neg) MDMA (Ecstasy) Screen (Neg) U Benzodiazepines Scrn (Neg) Ur Cocaine Metabolite (Neg) U Marijuana (THC) Screen (Neg) Ethyl Alcohol mg/dL (0-3) mg/dl 03/24/18 03/24/18 03/24/18 Range/Units 05:54 09:44 09:45 WBC (4.8-10.8) K/uL RBC (4.7-6.1) M/uL Hgb (14.0-18.0) g/dL Hct (42-52) % MCV (80-100) fL MCH (25-34) pg MCHC (32-36) g/dL RDW Std Deviation (36.4-46.3) fL RDW Coeff of Mani (11.5-14.5) % Plt Count (130-400) K/uL MPV (7.4-10.4) fL Immature Gran % (Auto) % Neut % (Auto) % Lymph % (Auto) % Bowie % (Auto) % Eos % (Auto) % Baso % (Auto) % Immature Gran # (Auto) (0.00-0.02) K/uL Neut # (Auto) (1.4-6.5) K/uL Lymph # (Auto) (1.2-3.4) K/uL Bowie # (Auto) (0.11-0.59) K/uL Eos # (Auto) (0-0.5) K/uL Baso # (Auto) (0-0.2) K/uL PT (9.0-12.0) Seconds INR (0.9-1.1) VBG pH 7.48 H (7.36-7.41) VBG pCO2 36 L (38-50) mmHg VBG pO2 54 mmHg VBG HCO3 26 mmol/L VBG O2 Saturation 89.1 % VBG Base Excess 2.7 mEq/L Barometric Pressure 732.2 mm/Hg Sodium (136-145) mmol/L Potassium (3.5-5.1) mmol/L Chloride (98-107) mmol/L Carbon Dioxide (21-32) mmol/L Anion Gap (3-11) BUN (7-18) mg/dl Creatinine (0.6-1.4) mg/dl Est Cr Clr Drug Dosing ml/min Est GFR ( Amer) Est GFR (Non-Af Amer) BUN/Creatinine Ratio (10-20) Glucose (70-99) mg/dl Lactate (0.4-2.0) mmol/L Calcium (8.5-10.1) mg/dl Phosphorus (2.5-4.9) mg/dl Magnesium (1.8-2.4) mg/dl Total Bilirubin (0.2-1) mg/dl AST (15-37) U/L ALT (12-78) U/L Alkaline Phosphatase (45-117) U/L Total Creatine Kinase (39-308) U/L Troponin I (0-0.045) ng/ml Total Protein (6.4-8.2) gm/dl Albumin (3.4-5.0) gm/dl Globulin (2.5-4.0) gm/dl Albumin/Globulin Ratio (0.9-2) Lipase (73-393) U/L Urine Color Urine Appearance (Clear) Urine pH (4.5-7.5) Ur Specific Jackson (1.000-1.030) Urine Protein (Negative) Urine Glucose (UA) (Negative) Urine Ketones (Negative) Urine Blood (Negative) Urine Nitrite (Negative) Urine Bilirubin (Negative) Urine Urobilinogen (Negative) Ur Leukocyte Esterase (Negative) Urine WBC (Auto) (0-5) /hpf Urine RBC (Auto) (0-4) /hpf U Hyaline Cast (Auto) (0-5) /lpf U Epithel Cells (Auto) (0-5) /lpf Urine Bacteria (Auto) (Negative) Ur Renal Epithelial Cell Amorphous Sediment (None Prsent) Nasal Screen MRSA (PCR) (Negative) Salicylates 35.4 H* 28.6 H (2.8-20) mg/dl Urine Opiates Screen (Neg) Ur Methadone, Qual (Neg) Acetaminophen (10-30) ug/ml Urine Barbiturates (Neg) Ur Phencyclidine (PCP) (Neg) U Amphetamin/Meth Scrn (Neg) MDMA (Ecstasy) Screen (Neg) U Benzodiazepines Scrn (Neg) Ur Cocaine Metabolite (Neg) U Marijuana (THC) Screen (Neg) Ethyl Alcohol mg/dL (0-3) mg/dl 03/24/18 03/24/18 03/24/18 Range/Units 09:45 13:24 13:24 WBC (4.8-10.8) K/uL RBC (4.7-6.1) M/uL Hgb (14.0-18.0) g/dL Hct (42-52) % MCV (80-100) fL MCH (25-34) pg MCHC (32-36) g/dL RDW Std Deviation (36.4-46.3) fL RDW Coeff of Mani (11.5-14.5) % Plt Count (130-400) K/uL MPV (7.4-10.4) fL Immature Gran % (Auto) % Neut % (Auto) % Lymph % (Auto) % Bowie % (Auto) % Eos % (Auto) % Baso % (Auto) % Immature Gran # (Auto) (0.00-0.02) K/uL Neut # (Auto) (1.4-6.5) K/uL Lymph # (Auto) (1.2-3.4) K/uL Bowie # (Auto) (0.11-0.59) K/uL Eos # (Auto) (0-0.5) K/uL Baso # (Auto) (0-0.2) K/uL PT (9.0-12.0) Seconds INR (0.9-1.1) VBG pH (7.36-7.41) VBG pCO2 (38-50) mmHg VBG pO2 mmHg VBG HCO3 mmol/L VBG O2 Saturation % VBG Base Excess mEq/L Barometric Pressure mm/Hg Sodium 142 142 (136-145) mmol/L Potassium 3.1 L 3.6 D (3.5-5.1) mmol/L Chloride 111 H 112 H (98-107) mmol/L Carbon Dioxide 27 27 (21-32) mmol/L Anion Gap 4.0 3.0 (3-11) BUN 13 16 (7-18) mg/dl Creatinine 1.76 H D 1.87 H (0.6-1.4) mg/dl Est Cr Clr Drug Dosing 71.9 67.7 ml/min Est GFR ( Amer) 63.6 59.1 Est GFR (Non-Af Amer) 54.8 51.0 BUN/Creatinine Ratio 7.5 L 8.5 L (10-20) Glucose 110 H 100 H (70-99) mg/dl Lactate (0.4-2.0) mmol/L Calcium 7.5 L D 7.7 L (8.5-10.1) mg/dl Phosphorus (2.5-4.9) mg/dl Magnesium 2.1 (1.8-2.4) mg/dl Total Bilirubin (0.2-1) mg/dl AST (15-37) U/L ALT (12-78) U/L Alkaline Phosphatase (45-117) U/L Total Creatine Kinase (39-308) U/L Troponin I (0-0.045) ng/ml Total Protein (6.4-8.2) gm/dl Albumin (3.4-5.0) gm/dl Globulin (2.5-4.0) gm/dl Albumin/Globulin Ratio (0.9-2) Lipase (73-393) U/L Urine Color Urine Appearance (Clear) Urine pH (4.5-7.5) Ur Specific Jackson (1.000-1.030) Urine Protein (Negative) Urine Glucose (UA) (Negative) Urine Ketones (Negative) Urine Blood (Negative) Urine Nitrite (Negative) Urine Bilirubin (Negative) Urine Urobilinogen (Negative) Ur Leukocyte Esterase (Negative) Urine WBC (Auto) (0-5) /hpf Urine RBC (Auto) (0-4) /hpf U Hyaline Cast (Auto) (0-5) /lpf U Epithel Cells (Auto) (0-5) /lpf Urine Bacteria (Auto) (Negative) Ur Renal Epithelial Cell Amorphous Sediment (None Prsent) Nasal Screen MRSA (PCR) (Negative) Salicylates 22.7 H (2.8-20) mg/dl Urine Opiates Screen (Neg) Ur Methadone, Qual (Neg) Acetaminophen (10-30) ug/ml Urine Barbiturates (Neg) Ur Phencyclidine (PCP) (Neg) U Amphetamin/Meth Scrn (Neg) MDMA (Ecstasy) Screen (Neg) U Benzodiazepines Scrn (Neg) Ur Cocaine Metabolite (Neg) U Marijuana (THC) Screen (Neg) Ethyl Alcohol mg/dL (0-3) mg/dl 03/24/18 03/24/18 03/24/18 Range/Units 15:24 15:28 Unknown WBC (4.8-10.8) K/uL RBC (4.7-6.1) M/uL Hgb (14.0-18.0) g/dL Hct (42-52) % MCV (80-100) fL MCH (25-34) pg MCHC (32-36) g/dL RDW Std Deviation (36.4-46.3) fL RDW Coeff of Mani (11.5-14.5) % Plt Count (130-400) K/uL MPV (7.4-10.4) fL Immature Gran % (Auto) % Neut % (Auto) % Lymph % (Auto) % Bowie % (Auto) % Eos % (Auto) % Baso % (Auto) % Immature Gran # (Auto) (0.00-0.02) K/uL Neut # (Auto) (1.4-6.5) K/uL Lymph # (Auto) (1.2-3.4) K/uL Bowie # (Auto) (0.11-0.59) K/uL Eos # (Auto) (0-0.5) K/uL Baso # (Auto) (0-0.2) K/uL PT (9.0-12.0) Seconds INR (0.9-1.1) VBG pH 7.40 (7.36-7.41) VBG pCO2 42 (38-50) mmHg VBG pO2 59 mmHg VBG HCO3 26 mmol/L VBG O2 Saturation 88.3 % VBG Base Excess 0.5 mEq/L Barometric Pressure 730.4 mm/Hg Sodium 143 (136-145) mmol/L Potassium 3.7 (3.5-5.1) mmol/L Chloride 115 H (98-107) mmol/L Carbon Dioxide 26 (21-32) mmol/L Anion Gap 2.0 L (3-11) BUN 17 (7-18) mg/dl Creatinine 1.70 H (0.6-1.4) mg/dl Est Cr Clr Drug Dosing 74.4 ml/min Est GFR ( Amer) 66.3 Est GFR (Non-Af Amer) 57.2 BUN/Creatinine Ratio 9.8 L (10-20) Glucose 106 H (70-99) mg/dl Lactate (0.4-2.0) mmol/L Calcium 7.5 L (8.5-10.1) mg/dl Phosphorus (2.5-4.9) mg/dl Magnesium (1.8-2.4) mg/dl Total Bilirubin (0.2-1) mg/dl AST (15-37) U/L ALT (12-78) U/L Alkaline Phosphatase (45-117) U/L Total Creatine Kinase (39-308) U/L Troponin I (0-0.045) ng/ml Total Protein (6.4-8.2) gm/dl Albumin (3.4-5.0) gm/dl Globulin (2.5-4.0) gm/dl Albumin/Globulin Ratio (0.9-2) Lipase (73-393) U/L Urine Color Urine Appearance (Clear) Urine pH >= 9.0 H (4.5-7.5) Ur Specific Jackson (1.000-1.030) Urine Protein (Negative) Urine Glucose (UA) (Negative) Urine Ketones (Negative) Urine Blood (Negative) Urine Nitrite (Negative) Urine Bilirubin (Negative) Urine Urobilinogen (Negative) Ur Leukocyte Esterase (Negative) Urine WBC (Auto) (0-5) /hpf Urine RBC (Auto) (0-4) /hpf U Hyaline Cast (Auto) (0-5) /lpf U Epithel Cells (Auto) (0-5) /lpf Urine Bacteria (Auto) (Negative) Ur Renal Epithelial Cell Amorphous Sediment (None Prsent) Nasal Screen MRSA (PCR) (Negative) Salicylates (2.8-20) mg/dl Urine Opiates Screen (Neg) Ur Methadone, Qual (Neg) Acetaminophen (10-30) ug/ml Urine Barbiturates (Neg) Ur Phencyclidine (PCP) (Neg) U Amphetamin/Meth Scrn (Neg) MDMA (Ecstasy) Screen (Neg) U Benzodiazepines Scrn (Neg) Ur Cocaine Metabolite (Neg) U Marijuana (THC) Screen (Neg) Ethyl Alcohol mg/dL (0-3) mg/dl 03/25/18 Range/Units 08:23 WBC (4.8-10.8) K/uL RBC (4.7-6.1) M/uL Hgb (14.0-18.0) g/dL Hct (42-52) % MCV (80-100) fL MCH (25-34) pg MCHC (32-36) g/dL RDW Std Deviation (36.4-46.3) fL RDW Coeff of Mani (11.5-14.5) % Plt Count (130-400) K/uL MPV (7.4-10.4) fL Immature Gran % (Auto) % Neut % (Auto) % Lymph % (Auto) % Bowie % (Auto) % Eos % (Auto) % Baso % (Auto) % Immature Gran # (Auto) (0.00-0.02) K/uL Neut # (Auto) (1.4-6.5) K/uL Lymph # (Auto) (1.2-3.4) K/uL Bowie # (Auto) (0.11-0.59) K/uL Eos # (Auto) (0-0.5) K/uL Baso # (Auto) (0-0.2) K/uL PT (9.0-12.0) Seconds INR (0.9-1.1) VBG pH (7.36-7.41) VBG pCO2 (38-50) mmHg VBG pO2 mmHg VBG HCO3 mmol/L VBG O2 Saturation % VBG Base Excess mEq/L Barometric Pressure mm/Hg Sodium 142 (136-145) mmol/L Potassium 3.8 (3.5-5.1) mmol/L Chloride 114 H (98-107) mmol/L Carbon Dioxide 24 (21-32) mmol/L Anion Gap 4.0 (3-11) BUN 16 (7-18) mg/dl Creatinine 1.52 H (0.6-1.4) mg/dl Est Cr Clr Drug Dosing 83.3 ml/min Est GFR ( Amer) 75.9 Est GFR (Non-Af Amer) 65.5 BUN/Creatinine Ratio 10.4 (10-20) Glucose 106 H (70-99) mg/dl Lactate (0.4-2.0) mmol/L Calcium 7.7 L (8.5-10.1) mg/dl Phosphorus (2.5-4.9) mg/dl Magnesium (1.8-2.4) mg/dl Total Bilirubin (0.2-1) mg/dl AST (15-37) U/L ALT (12-78) U/L Alkaline Phosphatase (45-117) U/L Total Creatine Kinase (39-308) U/L Troponin I (0-0.045) ng/ml Total Protein (6.4-8.2) gm/dl Albumin (3.4-5.0) gm/dl Globulin (2.5-4.0) gm/dl Albumin/Globulin Ratio (0.9-2) Lipase (73-393) U/L Urine Color Urine Appearance (Clear) Urine pH (4.5-7.5) Ur Specific Jackson (1.000-1.030) Urine Protein (Negative) Urine Glucose (UA) (Negative) Urine Ketones (Negative) Urine Blood (Negative) Urine Nitrite (Negative) Urine Bilirubin (Negative) Urine Urobilinogen (Negative) Ur Leukocyte Esterase (Negative) Urine WBC (Auto) (0-5) /hpf Urine RBC (Auto) (0-4) /hpf U Hyaline Cast (Auto) (0-5) /lpf U Epithel Cells (Auto) (0-5) /lpf Urine Bacteria (Auto) (Negative) Ur Renal Epithelial Cell Amorphous Sediment (None Prsent) Nasal Screen MRSA (PCR) (Negative) Salicylates (2.8-20) mg/dl Urine Opiates Screen (Neg) Ur Methadone, Qual (Neg) Acetaminophen (10-30) ug/ml Urine Barbiturates (Neg) Ur Phencyclidine (PCP) (Neg) U Amphetamin/Meth Scrn (Neg) MDMA (Ecstasy) Screen (Neg) U Benzodiazepines Scrn (Neg) Ur Cocaine Metabolite (Neg) U Marijuana (THC) Screen (Neg) Ethyl Alcohol mg/dL (0-3) mg/dl Imaging Data Radiologist's Impression: Radiology results as stated below per my review and the radiologist's interpretation: XR chest 1V portable HISTORY: 17 years-old Male OD acute drug overdose COMPARISON: None available TECHNIQUE: Portable AP view of the chest FINDINGS: The cardiomediastinal and hilar silhouettes are within normal limits. No pneumothorax, pleural effusion, focal airspace consolidation or overt pulmonary edema. The bones of the chest appear grossly intact. IMPRESSION: Normal chest radiograph. The above report was generated using voice recognition software. It may contain grammatical, syntax or spelling errors. Electronically signed by: Laz Botello M.D. 03/23/2018 3:03 PM ECG Data Attestation: I personally reviewed and interpreted this ECG as follows: Indication: toxicologic Rate (beats per minute): 75 Rhythm: normal sinus Findings: no ST elevation, no acute ischemic change and no ectopy Comparison ECG Date: no prior available Blood Pressure Blood Pressure Findings: Normal blood pressure Blood Pressure Disposition: further management by hospitalist GABE Narrative The patient is a 17-year-old male who presented to the emergency department after an overdose. The patient took a very significant amount of aspirin. The patient presented to the emergency department with very minimal symptoms at first. He did complain of some tenderness. The the patient's case was discussed immediately with poison control center. He was just over 1 hour from the time of ingestion so no charcoal was advised. The patient was treated with IV fluids. His initial aspirin level was elevated but his symptoms were still minimal. His 2-hour level from the time of presentation was very significantly elevated and the patient was already having symptoms of nausea vomiting as well as worsening tenderness. The patient was started on a bicarbonate drip. I discussed the patient's laboratory and radiographic studies with the medical records assistant. I also discussed his case with the on-call diesel powerplant supervisor. Once we were comfortable that the patient would be able to be managed at our facility I discussed his case with the [facility] hospitalist group. They have agreed to evaluate the patient in the emergency department for further management and disposition. The patient was reevaluated multiple times. Impression & Plan Aspirin overdose, Depression, Suicide gesture Critical Care Time I have personally spent greater than 60 minutes of critical care time in the direct management of this patient. This includes bedside care, interpretation of diagnostic studies, and testing, discussion with consultants, patient, and family members, and other required patient management activities. This 60 minutes is in excess of all separately billable procedures. Critical Care Time: Yes Total Critical Care Time: 60 Discharge Plan Visit Data *Final* Discharge Date/Time: 03/23/18 19:35 Chief Complaint: Overdose (Intentional) ED Provider: [facility] Discharge Problem: Aspirin overdose, Depression, Suicide gesture Patient Disposition: Admitted As Inpatient Condition: Good Discharge Instructions Interventions: ED Discharge Assessment Last Done: 03/23/18 19:35 The scribe's documentation has been prepared under my direction and personally reviewed by me in its entirety. I confirm that the note above accurately reflects all work, treatment, procedures, and medical decision making performed by me.
[2018-03-23 14:32] LABS: Base Excess VBG 1.3 mEq/L; Oxygen Saturation VBG 70.5 %; pH VBG 7.4 (7.36-7.41)
[2018-03-23 14:33] LABS: Acetaminophen < 2 ug/ml (10-30); Salicylate 18.9 mg/dl (2.8-20)
[2018-03-23] MEDS ORDERED: GI COCKTAIL ED USE PO ONE (15:00)
--- NOTE | 2018-03-23 15:04 | XRay Report ---
XR chest 1V portable HISTORY: 17 years-old Male OD acute drug overdose COMPARISON: None available TECHNIQUE: Portable AP view of the chest FINDINGS: The cardiomediastinal and hilar silhouettes are within normal limits. No pneumothorax, pleural effusi on, focal airspace consolidation or overt pulmonary edema. The bones of the chest appear grossly inta ct. IMPRESSION: Normal chest radiograph. The above report was generated using voice recognition software. It may contain grammatical, syntax o r spelling errors. Electronically signed by: Laz Botello M.D. 03/23/2018 3:03 PM
[2018-03-23 15:18] LABS: Amphetamines+Metham, Urine Neg (Neg); Barbiturates, Urine Neg (Neg); Benzodiazepine, Urine Neg (Neg); Cocaine, Urine Neg (Neg); MDMA (Ecstacy), Urine Neg (Neg); Methadone, Urine Neg (Neg); Opiate, Urine Neg (Neg); Phencyclidine, Urine Neg (Neg)
[2018-03-23] MEDS ORDERED: SODIUM BICARBONATE 8.4% 150 MEQ in DEXTROSE 5% 1,000 ML IV SCH (16:45)
[2018-03-23] MEDS: SODIUM BICARBONATE 8.4% 150 MEQ in DEXTROSE 5% 1,000 ML IV SCH (18:37)
[2018-03-23] MEDS ORDERED: PROMETHAZINE HCL 12.5 MG in SODIUM CHLORIDE 0.9% 50 ML IV STA (18:45)
[2018-03-23] MEDS ORDERED: PROMETHAZINE 12.5 MG/50.5 ML NSS IV ONE (18:49)
[2018-03-23] MEDS ORDERED: ACETAMINOPHEN 325 MG TAB PO PRN (19:56)
[2018-03-23] MEDS ORDERED: POTASSIUM CHLORIDE PWD 20 MEQ PACK PO STA (19:56)
[2018-03-23] MEDS ORDERED: ONDANSETRON INJ 2 MG/ML 2 ML VIAL IV PRN (19:56)
[2018-03-23] MEDS ORDERED: DEXTROSE 5% 1,000 ML IV SCH (20:15)
[2018-03-23 20:19] LABS: Base Excess VBG 0.9 mEq/L; Oxygen Saturation VBG 68.4 %; pH VBG 7.46 (7.36-7.41)
[2018-03-23 20:30] LABS: BUN Creatinine Ratio 11.2 (10-20); Calcium 7.9 mg/dl (8.5-10.1); Est GFR (African American) 109.8; Est GFR (Non-African American) 94.7; Potassium 3.2 mmol/L (3.5-5.1)
--- NOTE | 2018-03-23 21:03 | Progress Note ---
Date of Service March 23, 2018 Assessment & Plan (1) Aspirin overdose: Please refer to the consultation dictated by Dr. Brooks. Currently the note is not transcribed. Inasmuch as I do not have access to a blank progress note I am using a general progress note for an addendum to care for Mr. Bonilla. Review of labs show that Mr. Bonilla is developing hypokalemia with a potassium of 3.2. 40 mEq of potassium chloride was ordered via 10 mEq x4 via IV infusion Toxicology shows salicylate levels increasing to 64. Repeat level was drawn at 2009 and is currently pending A routine nephrology consult was placed for possible dialysis if the patient's trending continues to worsen. I personally called Dr. Olmstead and discussed the case with him. Currently the patient does not have acute renal failure. Criteria for dialysis is as follows: * Acute kidney injury with a creatinine greater than 2 * Developing critical acidosis with an arterial pH less than 7.1 * Increasing salicylate levels greater than 90 * Pulmonary edema * Hemodynamic instability At this point labs will be drawn every 4 hours and patient will be followed closely in the intensive care unit If patient begins to develop criteria dialysis catheter will be placed temporarily by the intensive care staff Dr. Brooks was present and also spoke with Dr. Harris via phone We will continue to follow Encounter type: initial encounter Injury intent: intentional self -harm Qualified Code(s): T39.012A - Poisoning by aspirin, intentional self-harm , initial encounter Physical Exam 2 Vital Signs (Past 24 Hours): Last Vital Signs Temp 36.5 C 03/23/18 13:38 Pulse 88 03/23/18 19:35 Resp 18 03/23/18 19:35 BP 136/70 03/23/18 19:35 Pulse Ox 96 03/23/18 19:35
[2018-03-23] MEDS: POTASSIUM CHLORIDE / WTR 10 MEQ/100 ML PLCT IV SCH ×3 (21:12→23:12)
[2018-03-23] MEDS: PANTOprazole 40 MG in SYRINGE 0 ML IV SCH (21:13)
[2018-03-23 21:24] LABS: Appearance Urine Turbid (Clear); Bacteria Urine Automated Negative (Negative); Bilirubin Urine Negative (Negative); Color Urine Yellow; Epithelial Cell Urine Auto >30 /lpf (0-5); Glucose Urine UA Trace (Negative); Ketones Urine Negative (Negative); Leukocyte Esterase Urine Negative (Negative); Nitrite Urine Negative (Negative); Specific Gravity Urine 1.017 (1.000-1.030); Urobilinogen Urine Negative (Negative); pH Urine >= 9.0 (4.5-7.5)
[2018-03-23 21:40] LABS: Protein Urine 1+ (Negative)
[2018-03-23 21:44] LABS: Amorphous Sediment Urine Present (None Prsent)
--- NOTE | 2018-03-23 22:02 | History & Physical Report ---
Date of Service March 23, 2018 Assessment & Plan (1) Aspirin overdose: Mainstay of aspirin overdose treatment is alkalization of the blood and urine to prevent salicylic acid from entering the cells. - Sodium bicarb drip started in the ED and continued in the ICU. - Goal for urine pH 7.5 - 8; presently at goal - Aggressive repletion of potassium as low K can hamper alkanization. - Given 40 mEq IV - Goal urine output of ~80 mL/hr - Q4h BMP, salicylate level, and vbg - Exhibition Organiser and nephrology consults in case eventual need for HD (2) Depression: As in HPI, prior hospitalization for depression ~5 years ago, and prior suicidal thoughts and intentions. - 1:1 sitter - Psych consult - CM consult for likely inpatient psychiatric stay after aspirin poisoning is resolved (3) DVT prophylaxis: SCDs - Low risk patient History of Present Illness Primary Care Provider: [facility] 17yo M w/ hx of depression who presents with suicide attempt via aspirin overdose. Patient reports that he took 150 325mg tablets at 12:30pm. He has been feeling increasingly isolated and depressed at college. He reports no prior suicide attempts, but has made prior plans in the past. He was in a psychiatric institute in [place] approx. 5 years ago and was briefly on anti- depressants, but stopped them after a few months. At present, he reports tinnitis and some mild nausea, but otherwise denies any shortness of breath, any fevers or chills, chest pain, or other issues. Allergies Allergy/AdvReac Type Severity Reaction Status Date / Time No Known Allergies Allergy Verified 03/23/18 15:03 Home Medications Home Medications Medication Instructions Recorded Confirmed Type No Known Home Medications 03/23/18 03/23/18 History Past Med/Surg History Medical History Depression Family History Sister Depression Social History Feels Safe at Home: Yes Smoking Status: Never smoker Hx Alcohol Use: Yes (Reports he drinks "sometimes") Alcohol Intake Frequency: 0 -2 drinks per day Hx Substance Use: No Review of Systems Constitutional: no fever, no chills and no sweats Eyes: no diplopia Ear, Nose, Mouth, Throat: no ear trauma, no nasal discharge and no dental pain Respiratory: no cough, no chest congestion and no dyspnea Cardiovascular: no chest pain, no dyspnea on exertion, no palpitations and no syncope Gastrointestinal: no abdominal pain, no belching, no constipation, no diarrhea/ loose stools, no blood in stools and no melena Musculoskeletal: no back pain, no joint pain and no muscle weakness Integumentary: no rash, no skin ulcer and no erythema Neurologic: no generalized weakness, no loss of sensation, no numbness and no paresthesia Psychiatric: no depression and no anxiety Endocrine: no fatigue, no polydipsia and no polyphagia Physical Exam 2 Vital Signs (Past 24 Hours): Last Vital Signs Temp 36.5 C 03/23/18 13:38 Pulse 88 03/23/18 19:35 Resp 18 03/23/18 19:35 BP 136/70 03/23/18 19:35 Pulse Ox 96 03/23/18 19:35 Constitutional: WD/WN, vitals as above Eyes: EOM intact bilaterally; no conjunctival abnormality ENMT: external ear and nose normal, oropharynx normal Neck: trachea midline, no thyromegaly normal visual inspection Respiratory: normal respiratory effort, lungs clear to auscultation no respiratory distress Cardiovascular: Rate/Rhythm: + tachycardic Heart Sounds: normal S1 and normal S2 Gastrointestinal (Abdomen): Inspection/Auscultation: abdomen normal to inspection; abdomen not distended Musculoskeletal: no cyanosis or clubbing, extremities motor strength 5/5 Skin: no rashes, warm and dry Neurologic: moves all extremities and awake Psychiatric: Orientation: alert, oriented to person and cooperative _ (1) Aspirin overdose Encounter type: initial encounter Injury intent: intentional self-harm Qualified Code(s): T39.012A - Poisoning by aspirin, intentional self-harm, initial encounter
[2018-03-23 23:22] LABS: Base Excess VBG 0.8 mEq/L; HCO3 VBG 24 mmol/L; PCO2 VBG 33 mmHg (38-50); PO2 VBG 37 mmHg; pH VBG 7.47 (7.36-7.41)
[2018-03-23 23:38] LABS: BUN Creatinine Ratio 10.6 (10-20); Calcium 7.1 mg/dl (8.5-10.1); Creatinine Clr Calc Pharmacy 103.7 ml/min; Est GFR (Non-African American) 85.4; Potassium 3.1 mmol/L (3.5-5.1)
--- NOTE | 2018-03-23 23:48 | Consultation Report ---
DATE OF CONSULTATION: 03/23/2018 CONSULTATION REQUESTED BY: aEgle Farooq DO, Emergency Room physician. REASON FOR CONSULTATION: Aspirin overdose. SUBJECTIVE: A 17-year-old male who was brought into the Emergency Room with an intentional overdose. 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 He took these pills around 12:30 p.m. this afternoon. Currently, patient is breathing a little fast. He is also nauseous, but denies having any abdominal pain. He felt like vomiting, but he has not vomited. The patient is also feeling depressed for last few months. He has moved from [place] to go to the [facility] here. He was also admitted in the past to the mental health institution about 5 years ago in [place]. According to the family, which are in [place], he has worsening depression and anxiety. He had vomited once with some small pill fragments. He denies having any chest pain or palpitations. He also denies having any headache, dizziness, or syncopal episode. Does not have any blood in the stool, urine, or painful micturition. He denies having any shortness of breath but he has got some shortness of breath. He looks little dyspneic. He also denies having any swollen extremities. REVIEW OF SYSTEMS: As mentioned above. PAST MEDICAL HISTORY: As mentioned above, depression, and anxiety. PAST SURGICAL HISTORY: None. SOCIAL HISTORY: He denies any smoking or alcohol related history. He does not take any kind of drugs. CURRENT MEDICATIONS: At home, he is not on any medications. The medication is here. He is on sodium bicarbonate 150 mEq, in Dextrose at 1150 mL at 250 mL per hour. He also got the bolus of sodium chloride. He has also received Zofran 4 mg IV 1 dose. He is also on Pepcid 20 mg IV and pantoprazole IV. OBJECTIVE: GENERAL: Young male, resting comfortably, not in any acute distress, but he looks little worried and anxious. VITAL SIGNS: His blood pressure was 116/73, pulse is 87, respiratory rate is 24, his temperature is 36.5. His oxygen saturation was 97% on room air. He has intake of 2054, output is not documented yet. LABORATORY DATA: WBC is 5.16, H and H 15.4/44.4, MCV 93. His platelets are 213. Differential count is normal at this time. PT/INR was 1.1. It was a VBG, pH is 7.40, pCO2 of 43, pO2 of 37, and his bicarbonate was 26. O2 saturation was 70, base excess 1.3. His sodium is 141, potassium 3.8, chloride 109, CO2 26, anion gap was 6, BUN was 15, creatinine 0.98, glucose 87. Lactate 1.1, calcium 8.9, magnesium 2.0, total bili 0.5, AST 19, ALT 32, alkaline phosphatase 59. Troponin I is less than 0.015. Albumin 4.0. His salicylate level was 31.0 that was around 3:35, acetaminophen is less than 2 mcg. Rest everything was, all the urine tox screen was negative and ethyl alcohol was less than 3.0. Chest x-ray, normal chest. No abnormalities were detected. Urine pH is 7.0 that was at 1524, so repeat urine pH is pending. PHYSICAL EXAMINATION: GENERAL: The patient is alert, awake, not in any acute distress. HEENT: Pupils are reactive to light. There is no cervical or supraclavicular adenopathy. No jugular venous distention. Nasal passages are clear. Nontender sinuses. CHEST: Bilateral air entry with clear lungs. No wheezing, no crackles, no rhonchi heard. HEART: S1, S2 heard, regular rate and rhythm. There was no murmur, no rubs, no gallops. ABDOMEN: Soft, nontender, no hepatosplenomegaly. Bowel sounds are positive. EXTREMITIES: No clubbing, no edema, nontender calf muscles. NEUROLOGIC: Limited study which is grossly nonfocal. He is alert, awake, and oriented and his pupils are reactive to light. PSYCHIATRIC: The patient is very guarded appearing. He is depressed. He is also admitting suicidal ideation with the above aforementioned plan. IMPRESSION AND PLAN: A 17-year-old male who was admitted with suicidal ideation. The Emergency Room contacted the poison control and was strongly recommended to be started on the bicarbonate drip. 1. Aspirin overdose. The patient is started on bicarbonate drip. We will try to keep pH around 8. We will also continue with the bicarbonate drip as well as D5W. We will monitor the patient very closely with the pH, also chemistry, and we will also do another VBG. Emergency Room physician also have talked to the camera repairman and if indicated, if he becomes more lethargic, he will need to be intubated and also will need to be dialyzed. So if that is the case, then he will need the dialysis catheter and we will go ahead and dialyze him. In the meantime, we will maintain his urine pH around 8 also supplement with potassium. Continue with the fluids especially D5W as well as bicarbonate drip as prescribed. 2. Suicidal intention. The patient was strongly recommended that he cannot get out of the room on his own. He will be also evaluated by the psychiatrist once he is more stable and he will be cleared too. We are going to continue with all other management as prescribed. I have spent greater than 55 minutes of critical care time. Thank you very much for allowing me to participate in the care of your patient. If you have got any further questions, please do not hesitate to contact me and I will follow this case with you. YASIR
[2018-03-24] MEDS: POTASSIUM CHLORIDE / WTR 10 MEQ/100 ML PLCT IV SCH ×5 (00:23→06:47)
[2018-03-24] MEDS ORDERED: POTASSIUM CHLORIDE PWD 20 MEQ PACK PO STA ×3 (00:37→06:44)
[2018-03-24] MEDS: SODIUM BICARBONATE 8.4% 150 MEQ in DEXTROSE 5% 1,000 ML IV SCH ×3 (00:50→09:55)
[2018-03-24 02:46] LABS: Calcium 7.1 mg/dl (8.5-10.1); Creatinine Clr Calc Pharmacy 103.7 ml/min; Est GFR (Non-African American) 85.4; Potassium 3.2 mmol/L (3.5-5.1)
[2018-03-24 05:02] LABS: Base Excess VBG 0.8 mEq/L; HCO3 VBG 25 mmol/L; Oxygen Saturation VBG 94.7 %; PCO2 VBG 37 mmHg (38-50); PO2 VBG 72 mmHg; pH VBG 7.44 (7.36-7.41)
[2018-03-24 06:02] LABS: Hematocrit (blood only) 37.2 % (42-52); Mean Corpuscular Hgb Conc 34.9 g/dL (32-36); Mean Corpuscular Volume 92.3 fL (80-100); Mean Platelet Volume 10.6 fL (7.4-10.4); Platelet Count 191 K/uL (130-400); RDW Coefficient of Variation 13.2 % (11.5-14.5); RDW Standard Deviation 44.5 fL (36.4-46.3); Red Blood Count 4.03 M/uL (4.7-6.1); White Blood Count 10.48 K/uL (4.8-10.8)
[2018-03-24 06:15] LABS: INR 1.3 (0.9-1.1); Prothrombin Time 12.7 Seconds (9.0-12.0)
[2018-03-24 06:30] LABS: BUN Creatinine Ratio 9.1 (10-20); Calcium 6.5 mg/dl (8.5-10.1); Creatinine Clr Calc Pharmacy 90.4 ml/min; Est GFR (African American) 83.8; Est GFR (Non-African American) 72.3; Potassium 3.5 mmol/L (3.5-5.1)
[2018-03-24 06:38] LABS: Bilirubin,Total 0.3 mg/dl (0.2-1); Phosphorus 4.4 mg/dl (2.5-4.9)
[2018-03-24] MEDS ORDERED: CALCIUM CHLORIDE 10% 1,000 MG in SODIUM CHLORIDE 0.9% 50 ML IV STA (07:31)
[2018-03-24] MEDS: PANTOprazole 40 MG in SYRINGE 0 ML IV SCH ×2 (07:56→19:27)
--- NOTE | 2018-03-24 09:05 | Critical Care Progress Note ---
Date of Service March 24, 2018 Assessment & Plan (1) Aspirin overdose: 17-year-old male was admitted on 23 March 2018 following a purposeful aspirin overdose. 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 UDS, tylenol, and EtOH negative. Improving tinnitus. PMH depression and psychiatric hospitalization. Presently on 1:1 sitter. Psych consult pending. Pulm: pCXR unremarkable. No known acute issues. CVS: No known acute issues. On cardiac technologist. ID: Afebrile, no leukocytosis. No known infectious issues. Endo: No PMH of DM or thyroid disease. Monitoring blood sugars. Renal/Lytes: ASA overdose. IVF boluses and sodium bicarb drip started. Last pH 7.44. Max ASA level 64.6, trending downwards. Hypokalemia, as low as K 3.1 , replacing. Cr trending up to 1.4. Given IVF. Nephrology consult pending. - Will stop bicarb once ASA level is < 30. GI: No known acute issues. Regular diet. Heme: Admit Hb normal. INR to 1.3. Monitoring. DVT prophy: SCDs and ambulation. Lines: PIV. Code status: Full code. PT/OT: Deferred. Disposition: Admitted to ICU. Likely eventual transfer to inpatient psychiatry once medically cleared. (2) Suicide gesture: (3) Depression: (4) Elevated serum creatinine: (5) Hypokalemia: (6) Elevated INR: Supervising Physician Co-Signing Physician Notes Resident Physician Supervision Note: I was present with Dr. Tello during the history and exam. I discussed the case with the resident and agree with the findings and plan as documented in the note. Any exceptions or clarifications are listed here: After reviewing the patient's progress this morning we had canceled the nephrology consultation. The patient was supposed to be transferred to inpatient psych unit. Repeat lab reveals significant improvement in salicylates but creatinine was getting worse and the repeat creatinine was 1.87. At that stage the patient was not accepted by the inpatient psych unit because of worsening of the renal function. Nephrology was consulted and they recommended to continue with the fluid and repeat labs in the morning and they would like to see the trending down of the creatinine. Once it has improved the patient will be transferred to the inpatient psych unit. In the meantime we are going to continue with all other management as prescribed. I also had a long discussion with the patient about his current medical condition. Documented By: Sohan Brooks Subjective Found patient resting comfortably, wakes easily to voice. Says that his throat feels a little sore but otherwise he denies any pain elsewhere. Says that his tinnitus is improving. He has no particular acute raised concerns. Nursing noted nausea overnight. Physical Exam 2 Vital Signs (Past 24 Hours): Last Vital Signs Temp 37 C 03/24/18 04:00 Pulse 100 H 03/24/18 07:00 Resp 18 03/23/18 22:31 BP 105/53 L 03/24/18 07:00 Pulse Ox 98 03/24/18 07:00 Physical Exam: General Appearance: Awake easily, alert & oriented, comfortable in general, NAD. CV: +S1S2 RRR, no murmur. Pulm: Clear to auscultation throughout. Abdomen: +BS, soft, non-tender, non-distended. Extremities: No pedal edema or calf tenderness. Moving all extremities naturally and easily. Neuro: No gross neuro deficits. Results & Data Laboratory Results 03/24/18 03/24/18 03/24/18 Range/Units Unknown 05:54 05:54 WBC 10.48 (4.8-10.8) K/uL RBC 4.03 L (4.7-6.1) M/uL Hgb 13.0 L (14.0-18.0) g/dL Hct 37.2 L (42-52) % MCV 92.3 (80-100) fL MCH 32.3 (25-34) pg MCHC 34.9 (32-36) g/dL RDW Std Deviation 44.5 (36.4-46.3) fL RDW Coeff of Mani 13.2 (11.5-14.5) % Plt Count 191 (130-400) K/uL MPV 10.6 H (7.4-10.4) fL Immature Gran % (Auto) % Neut % (Auto) % Lymph % (Auto) % Hawkins % (Auto) % Eos % (Auto) % Baso % (Auto) % Immature Gran # (Auto) (0.00-0.02) K/uL Neut # (Auto) (1.4-6.5) K/uL Lymph # (Auto) (1.2-3.4) K/uL Hawkins # (Auto) (0.11-0.59) K/uL Eos # (Auto) (0-0.5) K/uL Baso # (Auto) (0-0.2) K/uL PT (9.0-12.0) Seconds INR (0.9-1.1) VBG pH (7.36-7.41) VBG pCO2 (38-50) mmHg VBG pO2 mmHg VBG HCO3 mmol/L VBG O2 Saturation % VBG Base Excess mEq/L Barometric Pressure mm/Hg Sodium (136-145) mmol/L Potassium (3.5-5.1) mmol/L Chloride (98-107) mmol/L Carbon Dioxide (21-32) mmol/L Anion Gap (3-11) BUN (7-18) mg/dl Creatinine (0.6-1.4) mg/dl Est Cr Clr Drug Dosing ml/min Est GFR ( Amer) Est GFR (Non-Af Amer) BUN/Creatinine Ratio (10-20) Glucose (70-99) mg/dl Lactate (0.4-2.0) mmol/L Calcium (8.5-10.1) mg/dl Phosphorus (2.5-4.9) mg/dl Magnesium (1.8-2.4) mg/dl Total Bilirubin (0.2-1) mg/dl AST (15-37) U/L ALT (12-78) U/L Alkaline Phosphatase (45-117) U/L Total Creatine Kinase (39-308) U/L Troponin I (0-0.045) ng/ml Total Protein (6.4-8.2) gm/dl Albumin (3.4-5.0) gm/dl Globulin (2.5-4.0) gm/dl Albumin/Globulin Ratio (0.9-2) Lipase (73-393) U/L Urine Color Urine Appearance (Clear) Urine pH >= 9.0 H (4.5-7.5) Ur Specific [place] (1.000-1.030) Urine Protein (Negative) Urine Glucose (UA) (Negative) Urine Ketones (Negative) Urine Blood (Negative) Urine Nitrite (Negative) Urine Bilirubin (Negative) Urine Urobilinogen (Negative) Ur Leukocyte Esterase (Negative) Urine WBC (Auto) (0-5) /hpf Urine RBC (Auto) (0-4) /hpf U Hyaline Cast (Auto) (0-5) /lpf U Epithel Cells (Auto) (0-5) /lpf Urine Bacteria (Auto) (Negative) Ur Renal Epithelial Cell Amorphous Sediment (None Prsent) Nasal Screen MRSA (PCR) (Negative) Salicylates 35.4 H* (2.8-20) mg/dl Urine Opiates Screen (Neg) Ur Methadone, Qual (Neg) Acetaminophen (10-30) ug/ml Urine Barbiturates (Neg) Ur Phencyclidine (PCP) (Neg) U Amphetamin/Meth Scrn (Neg) MDMA (Ecstasy) Screen (Neg) U Benzodiazepines Scrn (Neg) Ur Cocaine Metabolite (Neg) U Marijuana (THC) Screen (Neg) Ethyl Alcohol mg/dL (0-3) mg/dl 03/24/18 03/24/18 03/24/18 Range/Units 05:54 05:54 04:37 WBC (4.8-10.8) K/uL RBC (4.7-6.1) M/uL Hgb (14.0-18.0) g/dL Hct (42-52) % MCV (80-100) fL MCH (25-34) pg MCHC (32-36) g/dL RDW Std Deviation (36.4-46.3) fL RDW Coeff of Mani (11.5-14.5) % Plt Count (130-400) K/uL MPV (7.4-10.4) fL Immature Gran % (Auto) % Neut % (Auto) % Lymph % (Auto) % [place] % (Auto) % Eos % (Auto) % Baso % (Auto) % Immature Gran # (Auto) (0.00-0.02) K/uL Neut # (Auto) (1.4-6.5) K/uL Lymph # (Auto) (1.2-3.4) K/uL [place] # (Auto) (0.11-0.59) K/uL Eos # (Auto) (0-0.5) K/uL Baso # (Auto) (0-0.2) K/uL PT 12.7 H (9.0-12.0) Seconds INR 1.3 H (0.9-1.1) VBG pH 7.44 H (7.36-7.41) VBG pCO2 37 L (38-50) mmHg VBG pO2 72 mmHg VBG HCO3 25 mmol/L VBG O2 Saturation 94.7 % VBG Base Excess 0.8 mEq/L Barometric Pressure mm/Hg Sodium 141 (136-145) mmol/L Potassium 3.5 (3.5-5.1) mmol/L Chloride 111 H (98-107) mmol/L Carbon Dioxide 26 (21-32) mmol/L Anion Gap 4.0 (3-11) BUN 13 (7-18) mg/dl Creatinine 1.40 (0.6-1.4) mg/dl Est Cr Clr Drug Dosing 90.4 ml/min Est GFR ( Amer) 83.8 Est GFR (Non-Af Amer) 72.3 BUN/Creatinine Ratio 9.1 L (10-20) Glucose 107 H (70-99) mg/dl Lactate (0.4-2.0) mmol/L Calcium 6.5 L (8.5-10.1) mg/dl Phosphorus 4.4 (2.5-4.9) mg/dl Magnesium 2.0 (1.8-2.4) mg/dl Total Bilirubin 0.3 (0.2-1) mg/dl AST 16 (15-37) U/L ALT 41 (12-78) U/L Alkaline Phosphatase 48 (45-117) U/L Total Creatine Kinase (39-308) U/L Troponin I (0-0.045) ng/ml Total Protein 6.0 L D (6.4-8.2) gm/dl Albumin 3.0 L (3.4-5.0) gm/dl Globulin 3.0 (2.5-4.0) gm/dl Albumin/Globulin Ratio 1.0 (0.9-2) Lipase (73-393) U/L Urine Color Urine Appearance (Clear) Urine pH (4.5-7.5) Ur Specific [place] (1.000-1.030) Urine Protein (Negative) Urine Glucose (UA) (Negative) Urine Ketones (Negative) Urine Blood (Negative) Urine Nitrite (Negative) Urine Bilirubin (Negative) Urine Urobilinogen (Negative) Ur Leukocyte Esterase (Negative) Urine WBC (Auto) (0-5) /hpf Urine RBC (Auto) (0-4) /hpf U Hyaline Cast (Auto) (0-5) /lpf U Epithel Cells (Auto) (0-5) /lpf Urine Bacteria (Auto) (Negative) Ur Renal Epithelial Cell Amorphous Sediment (None Prsent) Nasal Screen MRSA (PCR) (Negative) Salicylates (2.8-20) mg/dl Urine Opiates Screen (Neg) Ur Methadone, Qual (Neg) Acetaminophen (10-30) ug/ml Urine Barbiturates (Neg) Ur Phencyclidine (PCP) (Neg) U Amphetamin/Meth Scrn (Neg) MDMA (Ecstasy) Screen (Neg) U Benzodiazepines Scrn (Neg) Ur Cocaine Metabolite (Neg) U Marijuana (THC) Screen (Neg) Ethyl Alcohol mg/dL (0-3) mg/dl 03/24/18 03/24/18 03/23/18 Range/Units 02:13 02:13 Unknown WBC (4.8-10.8) K/uL RBC (4.7-6.1) M/uL Hgb (14.0-18.0) g/dL Hct (42-52) % MCV (80-100) fL MCH (25-34) pg MCHC (32-36) g/dL RDW Std Deviation (36.4-46.3) fL RDW Coeff of Mani (11.5-14.5) % Plt Count (130-400) K/uL MPV (7.4-10.4) fL Immature Gran % (Auto) % Neut % (Auto) % Lymph % (Auto) % [place] % (Auto) % Eos % (Auto) % Baso % (Auto) % Immature Gran # (Auto) (0.00-0.02) K/uL Neut # (Auto) (1.4-6.5) K/uL Lymph # (Auto) (1.2-3.4) K/uL [place] # (Auto) (0.11-0.59) K/uL Eos # (Auto) (0-0.5) K/uL Baso # (Auto) (0-0.2) K/uL PT (9.0-12.0) Seconds INR (0.9-1.1) VBG pH (7.36-7.41) VBG pCO2 (38-50) mmHg VBG pO2 mmHg VBG HCO3 mmol/L VBG O2 Saturation % VBG Base Excess mEq/L Barometric Pressure mm/Hg Sodium 140 (136-145) mmol/L Potassium 3.2 L (3.5-5.1) mmol/L Chloride 111 H (98-107) mmol/L Carbon Dioxide 24 (21-32) mmol/L Anion Gap 5.0 (3-11) BUN 12 (7-18) mg/dl Creatinine 1.22 (0.6-1.4) mg/dl Est Cr Clr Drug Dosing 103.7 ml/min Est GFR ( Amer) 99.0 Est GFR (Non-Af Amer) 85.4 BUN/Creatinine Ratio 10.0 (10-20) Glucose 137 H (70-99) mg/dl Lactate (0.4-2.0) mmol/L Calcium 7.1 L (8.5-10.1) mg/dl Phosphorus (2.5-4.9) mg/dl Magnesium (1.8-2.4) mg/dl Total Bilirubin (0.2-1) mg/dl AST (15-37) U/L ALT (12-78) U/L Alkaline Phosphatase (45-117) U/L Total Creatine Kinase (39-308) U/L Troponin I (0-0.045) ng/ml Total Protein (6.4-8.2) gm/dl Albumin (3.4-5.0) gm/dl Globulin (2.5-4.0) gm/dl Albumin/Globulin Ratio (0.9-2) Lipase (73-393) U/L Urine Color Yellow Urine Appearance Turbid H (Clear) Urine pH >= 9.0 H (4.5-7.5) Ur Specific [place] 1.017 (1.000-1.030) Urine Protein 1+ H (Negative) Urine Glucose (UA) Trace H (Negative) Urine Ketones Negative (Negative) Urine Blood Negative (Negative) Urine Nitrite Negative (Negative) Urine Bilirubin Negative (Negative) Urine Urobilinogen Negative (Negative) Ur Leukocyte Esterase Negative (Negative) Urine WBC (Auto) 1-5 (0-5) /hpf Urine RBC (Auto) 0-4 (0-4) /hpf U Hyaline Cast (Auto) 1-5 (0-5) /lpf U Epithel Cells (Auto) >30 H (0-5) /lpf Urine Bacteria (Auto) Negative (Negative) Ur Renal Epithelial Cell Not Reportable Amorphous Sediment Present H (None Prsent) Nasal Screen MRSA (PCR) (Negative) Salicylates 43.8 H* (2.8-20) mg/dl Urine Opiates Screen (Neg) Ur Methadone, Qual (Neg) Acetaminophen (10-30) ug/ml Urine Barbiturates (Neg) Ur Phencyclidine (PCP) (Neg) U Amphetamin/Meth Scrn (Neg) MDMA (Ecstasy) Screen (Neg) U Benzodiazepines Scrn (Neg) Ur Cocaine Metabolite (Neg) U Marijuana (THC) Screen (Neg) Ethyl Alcohol mg/dL (0-3) mg/dl 03/23/18 03/23/18 03/23/18 Range/Units 23:03 23:03 23:03 WBC (4.8-10.8) K/uL RBC (4.7-6.1) M/uL Hgb (14.0-18.0) g/dL Hct (42-52) % MCV (80-100) fL MCH (25-34) pg MCHC (32-36) g/dL RDW Std Deviation (36.4-46.3) fL RDW Coeff of Mani (11.5-14.5) % Plt Count (130-400) K/uL MPV (7.4-10.4) fL Immature Gran % (Auto) % Neut % (Auto) % Lymph % (Auto) % [place] % (Auto) % Eos % (Auto) % Baso % (Auto) % Immature Gran # (Auto) (0.00-0.02) K/uL Neut # (Auto) (1.4-6.5) K/uL Lymph # (Auto) (1.2-3.4) K/uL [place] # (Auto) (0.11-0.59) K/uL Eos # (Auto) (0-0.5) K/uL Baso # (Auto) (0-0.2) K/uL PT (9.0-12.0) Seconds INR (0.9-1.1) VBG pH 7.47 H (7.36-7.41) VBG pCO2 33 L (38-50) mmHg VBG pO2 37 mmHg VBG HCO3 24 mmol/L VBG O2 Saturation 73.0 % VBG Base Excess 0.8 mEq/L Barometric Pressure mm/Hg Sodium 141 (136-145) mmol/L Potassium 3.1 L (3.5-5.1) mmol/L Chloride 112 H (98-107) mmol/L Carbon Dioxide 25 (21-32) mmol/L Anion Gap 4.0 (3-11) BUN 13 (7-18) mg/dl Creatinine 1.22 (0.6-1.4) mg/dl Est Cr Clr Drug Dosing 103.7 ml/min Est GFR ( Amer) 99.0 Est GFR (Non-Af Amer) 85.4 BUN/Creatinine Ratio 10.6 (10-20) Glucose 122 H (70-99) mg/dl Lactate (0.4-2.0) mmol/L Calcium 7.1 L (8.5-10.1) mg/dl Phosphorus (2.5-4.9) mg/dl Magnesium 2.0 (1.8-2.4) mg/dl Total Bilirubin (0.2-1) mg/dl AST (15-37) U/L ALT (12-78) U/L Alkaline Phosphatase (45-117) U/L Total Creatine Kinase (39-308) U/L Troponin I (0-0.045) ng/ml Total Protein (6.4-8.2) gm/dl Albumin (3.4-5.0) gm/dl Globulin (2.5-4.0) gm/dl Albumin/Globulin Ratio (0.9-2) Lipase (73-393) U/L Urine Color Urine Appearance (Clear) Urine pH (4.5-7.5) Ur Specific [place] (1.000-1.030) Urine Protein (Negative) Urine Glucose (UA) (Negative) Urine Ketones (Negative) Urine Blood (Negative) Urine Nitrite (Negative) Urine Bilirubin (Negative) Urine Urobilinogen (Negative) Ur Leukocyte Esterase (Negative) Urine WBC (Auto) (0-5) /hpf Urine RBC (Auto) (0-4) /hpf U Hyaline Cast (Auto) (0-5) /lpf U Epithel Cells (Auto) (0-5) /lpf Urine Bacteria (Auto) (Negative) Ur Renal Epithelial Cell Amorphous Sediment (None Prsent) Nasal Screen MRSA (PCR) (Negative) Salicylates 51.3 H* (2.8-20) mg/dl Urine Opiates Screen (Neg) Ur Methadone, Qual (Neg) Acetaminophen (10-30) ug/ml Urine Barbiturates (Neg) Ur Phencyclidine (PCP) (Neg) U Amphetamin/Meth Scrn (Neg) MDMA (Ecstasy) Screen (Neg) U Benzodiazepines Scrn (Neg) Ur Cocaine Metabolite (Neg) U Marijuana (THC) Screen (Neg) Ethyl Alcohol mg/dL (0-3) mg/dl 03/23/18 03/23/18 03/23/18 Range/Units 21:16 20:10 19:57 WBC (4.8-10.8) K/uL RBC (4.7-6.1) M/uL Hgb (14.0-18.0) g/dL Hct (42-52) % MCV (80-100) fL MCH (25-34) pg MCHC (32-36) g/dL RDW Std Deviation (36.4-46.3) fL RDW Coeff of Amni (11.5-14.5) % Plt Count (130-400) K/uL MPV (7.4-10.4) fL Immature Gran % (Auto) % Neut % (Auto) % Lymph % (Auto) % [place] % (Auto) % Eos % (Auto) % Baso % (Auto) % Immature Gran # (Auto) (0.00-0.02) K/uL Neut # (Auto) (1.4-6.5) K/uL Lymph # (Auto) (1.2-3.4) K/uL [place] # (Auto) (0.11-0.59) K/uL Eos # (Auto) (0-0.5) K/uL Baso # (Auto) (0-0.2) K/uL PT (9.0-12.0) Seconds INR (0.9-1.1) VBG pH 7.46 H (7.36-7.41) VBG pCO2 35 L (38-50) mmHg VBG pO2 34 mmHg VBG HCO3 24 mmol/L VBG O2 Saturation 68.4 % VBG Base Excess 0.9 mEq/L Barometric Pressure 730.8 mm/Hg Sodium (136-145) mmol/L Potassium (3.5-5.1) mmol/L Chloride (98-107) mmol/L Carbon Dioxide (21-32) mmol/L Anion Gap (3-11) BUN (7-18) mg/dl Creatinine (0.6-1.4) mg/dl Est Cr Clr Drug Dosing ml/min Est GFR ( Amer) Est GFR (Non-Af Amer) BUN/Creatinine Ratio (10-20) Glucose (70-99) mg/dl Lactate (0.4-2.0) mmol/L Calcium (8.5-10.1) mg/dl Phosphorus (2.5-4.9) mg/dl Magnesium (1.8-2.4) mg/dl Total Bilirubin (0.2-1) mg/dl AST (15-37) U/L ALT (12-78) U/L Alkaline Phosphatase (45-117) U/L Total Creatine Kinase (39-308) U/L Troponin I (0-0.045) ng/ml Total Protein (6.4-8.2) gm/dl Albumin (3.4-5.0) gm/dl Globulin (2.5-4.0) gm/dl Albumin/Globulin Ratio (0.9-2) Lipase (73-393) U/L Urine Color Urine Appearance (Clear) Urine pH (4.5-7.5) Ur Specific [place] (1.000-1.030) Urine Protein (Negative) Urine Glucose (UA) (Negative) Urine Ketones (Negative) Urine Blood (Negative) Urine Nitrite (Negative) Urine Bilirubin (Negative) Urine Urobilinogen (Negative) Ur Leukocyte Esterase (Negative) Urine WBC (Auto) (0-5) /hpf Urine RBC (Auto) (0-4) /hpf U Hyaline Cast (Auto) (0-5) /lpf U Epithel Cells (Auto) (0-5) /lpf Urine Bacteria (Auto) (Negative) Ur Renal Epithelial Cell Amorphous Sediment (None Prsent) Nasal Screen MRSA (PCR) Negative (Negative) Salicylates 59.4 H* (2.8-20) mg/dl Urine Opiates Screen (Neg) Ur Methadone, Qual (Neg) Acetaminophen (10-30) ug/ml Urine Barbiturates (Neg) Ur Phencyclidine (PCP) (Neg) U Amphetamin/Meth Scrn (Neg) MDMA (Ecstasy) Screen (Neg) U Benzodiazepines Scrn (Neg) Ur Cocaine Metabolite (Neg) U Marijuana (THC) Screen (Neg) Ethyl Alcohol mg/dL (0-3) mg/dl 03/23/18 03/23/18 03/23/18 Range/Units 19:57 18:51 18:51 WBC (4.8-10.8) K/uL RBC (4.7-6.1) M/uL Hgb (14.0-18.0) g/dL Hct (42-52) % MCV (80-100) fL MCH (25-34) pg MCHC (32-36) g/dL RDW Std Deviation (36.4-46.3) fL RDW Coeff of Mani (11.5-14.5) % Plt Count (130-400) K/uL MPV (7.4-10.4) fL Immature Gran % (Auto) % Neut % (Auto) % Lymph % (Auto) % [place] % (Auto) % Eos % (Auto) % Baso % (Auto) % Immature Gran # (Auto) (0.00-0.02) K/uL Neut # (Auto) (1.4-6.5) K/uL Lymph # (Auto) (1.2-3.4) K/uL [place] # (Auto) (0.11-0.59) K/uL Eos # (Auto) (0-0.5) K/uL Baso # (Auto) (0-0.2) K/uL PT (9.0-12.0) Seconds INR (0.9-1.1) VBG pH 7.46 H (7.36-7.41) VBG pCO2 (38-50) mmHg VBG pO2 mmHg VBG HCO3 mmol/L VBG O2 Saturation % VBG Base Excess mEq/L Barometric Pressure mm/Hg Sodium 140 (136-145) mmol/L Potassium 3.2 L (3.5-5.1) mmol/L Chloride 113 H (98-107) mmol/L Carbon Dioxide 25 (21-32) mmol/L Anion Gap 2.0 L (3-11) BUN 13 (7-18) mg/dl Creatinine 1.12 (0.6-1.4) mg/dl Est Cr Clr Drug Dosing 113.0 ml/min Est GFR ( Amer) 109.8 Est GFR (Non-Af Amer) 94.7 BUN/Creatinine Ratio 11.2 (10-20) Glucose 102 H (70-99) mg/dl Lactate (0.4-2.0) mmol/L Calcium 7.9 L (8.5-10.1) mg/dl Phosphorus (2.5-4.9) mg/dl Magnesium (1.8-2.4) mg/dl Total Bilirubin (0.2-1) mg/dl AST (15-37) U/L ALT (12-78) U/L Alkaline Phosphatase (45-117) U/L Total Creatine Kinase (39-308) U/L Troponin I (0-0.045) ng/ml Total Protein (6.4-8.2) gm/dl Albumin (3.4-5.0) gm/dl Globulin (2.5-4.0) gm/dl Albumin/Globulin Ratio (0.9-2) Lipase (73-393) U/L Urine Color Urine Appearance (Clear) Urine pH (4.5-7.5) Ur Specific [place] (1.000-1.030) Urine Protein (Negative) Urine Glucose (UA) (Negative) Urine Ketones (Negative) Urine Blood (Negative) Urine Nitrite (Negative) Urine Bilirubin (Negative) Urine Urobilinogen (Negative) Ur Leukocyte Esterase (Negative) Urine WBC (Auto) (0-5) /hpf Urine RBC (Auto) (0-4) /hpf U Hyaline Cast (Auto) (0-5) /lpf U Epithel Cells (Auto) (0-5) /lpf Urine Bacteria (Auto) (Negative) Ur Renal Epithelial Cell Amorphous Sediment (None Prsent) Nasal Screen MRSA (PCR) (Negative) Salicylates 64.6 H* (2.8-20) mg/dl Urine Opiates Screen (Neg) Ur Methadone, Qual (Neg) Acetaminophen (10-30) ug/ml Urine Barbiturates (Neg) Ur Phencyclidine (PCP) (Neg) U Amphetamin/Meth Scrn (Neg) MDMA (Ecstasy) Screen (Neg) U Benzodiazepines Scrn (Neg) Ur Cocaine Metabolite (Neg) U Marijuana (THC) Screen (Neg) Ethyl Alcohol mg/dL (0-3) mg/dl 03/23/18 03/23/18 03/23/18 Range/Units 18:51 15:34 15:24 WBC (4.8-10.8) K/uL RBC (4.7-6.1) M/uL Hgb (14.0-18.0) g/dL Hct (42-52) % MCV (80-100) fL MCH (25-34) pg MCHC (32-36) g/dL RDW Std Deviation (36.4-46.3) fL RDW Coeff of Mani (11.5-14.5) % Plt Count (130-400) K/uL MPV (7.4-10.4) fL Immature Gran % (Auto) % Neut % (Auto) % Lymph % (Auto) % [place] % (Auto) % Eos % (Auto) % Baso % (Auto) % Immature Gran # (Auto) (0.00-0.02) K/uL Neut # (Auto) (1.4-6.5) K/uL Lymph # (Auto) (1.2-3.4) K/uL [place] # (Auto) (0.11-0.59) K/uL Eos # (Auto) (0-0.5) K/uL Baso # (Auto) (0-0.2) K/uL PT (9.0-12.0) Seconds INR (0.9-1.1) VBG pH (7.36-7.41) VBG pCO2 (38-50) mmHg VBG pO2 mmHg VBG HCO3 mmol/L VBG O2 Saturation % VBG Base Excess mEq/L Barometric Pressure mm/Hg Sodium (136-145) mmol/L Potassium 3.3 L (3.5-5.1) mmol/L Chloride (98-107) mmol/L Carbon Dioxide (21-32) mmol/L Anion Gap (3-11) BUN (7-18) mg/dl Creatinine (0.6-1.4) mg/dl Est Cr Clr Drug Dosing ml/min Est GFR ( Amer) Est GFR (Non-Af Amer) BUN/Creatinine Ratio (10-20) Glucose (70-99) mg/dl Lactate (0.4-2.0) mmol/L Calcium (8.5-10.1) mg/dl Phosphorus (2.5-4.9) mg/dl Magnesium (1.8-2.4) mg/dl Total Bilirubin (0.2-1) mg/dl AST (15-37) U/L ALT (12-78) U/L Alkaline Phosphatase (45-117) U/L Total Creatine Kinase (39-308) U/L Troponin I (0-0.045) ng/ml Total Protein (6.4-8.2) gm/dl Albumin (3.4-5.0) gm/dl Globulin (2.5-4.0) gm/dl Albumin/Globulin Ratio (0.9-2) Lipase (73-393) U/L Urine Color Urine Appearance (Clear) Urine pH 7.0 (4.5-7.5) Ur Specific [place] (1.000-1.030) Urine Protein (Negative) Urine Glucose (UA) (Negative) Urine Ketones (Negative) Urine Blood (Negative) Urine Nitrite (Negative) Urine Bilirubin (Negative) Urine Urobilinogen (Negative) Ur Leukocyte Esterase (Negative) Urine WBC (Auto) (0-5) /hpf Urine RBC (Auto) (0-4) /hpf U Hyaline Cast (Auto) (0-5) /lpf U Epithel Cells (Auto) (0-5) /lpf Urine Bacteria (Auto) (Negative) Ur Renal Epithelial Cell Amorphous Sediment (None Prsent) Nasal Screen MRSA (PCR) (Negative) Salicylates 31.0 H* (2.8-20) mg/dl Urine Opiates Screen (Neg) Ur Methadone, Qual (Neg) Acetaminophen (10-30) ug/ml Urine Barbiturates (Neg) Ur Phencyclidine (PCP) (Neg) U Amphetamin/Meth Scrn (Neg) MDMA (Ecstasy) Screen (Neg) U Benzodiazepines Scrn (Neg) Ur Cocaine Metabolite (Neg) U Marijuana (THC) Screen (Neg) Ethyl Alcohol mg/dL (0-3) mg/dl 03/23/18 03/23/1819 Range/Units 14:44 14:03 14:03 WBC (4.8-10.8) K/uL RBC (4.7-6.1) M/uL Hgb (14.0-18.0) g/dL Hct (42-52) % MCV (80-100) fL MCH (25-34) pg MCHC (32-36) g/dL RDW Std Deviation (36.4-46.3) fL RDW Coeff of Mani (11.5-14.5) % Plt Count (130-400) K/uL MPV (7.4-10.4) fL Immature Gran % (Auto) % Neut % (Auto) % Lymph % (Auto) % [place] % (Auto) % Eos % (Auto) % Baso % (Auto) % Immature Gran # (Auto) (0.00-0.02) K/uL Neut # (Auto) (1.4-6.5) K/uL Lymph # (Auto) (1.2-3.4) K/uL [place] # (Auto) (0.11-0.59) K/uL Eos # (Auto) (0-0.5) K/uL Baso # (Auto) (0-0.2) K/uL PT (9.0-12.0) Seconds INR (0.9-1.1) VBG pH 7.40 (7.36-7.41) VBG pCO2 43 (38-50) mmHg VBG pO2 37 mmHg VBG HCO3 26 mmol/L VBG O2 Saturation 70.5 % VBG Base Excess 1.3 mEq/L Barometric Pressure 730.9 mm/Hg Sodium (136-145) mmol/L Potassium (3.5-5.1) mmol/L Chloride (98-107) mmol/L Carbon Dioxide (21-32) mmol/L Anion Gap (3-11) BUN (7-18) mg/dl Creatinine (0.6-1.4) mg/dl Est Cr Clr Drug Dosing ml/min Est GFR ( Amer) Est GFR (Non-Af Amer) BUN/Creatinine Ratio (10-20) Glucose (70-99) mg/dl Lactate 1.1 (0.4-2.0) mmol/L Calcium (8.5-10.1) mg/dl Phosphorus (2.5-4.9) mg/dl Magnesium (1.8-2.4) mg/dl Total Bilirubin (0.2-1) mg/dl AST (15-37) U/L ALT (12-78) U/L Alkaline Phosphatase (45-117) U/L Total Creatine Kinase (39-308) U/L Troponin I (0-0.045) ng/ml Total Protein (6.4-8.2) gm/dl Albumin (3.4-5.0) gm/dl Globulin (2.5-4.0) gm/dl Albumin/Globulin Ratio (0.9-2) Lipase (73-393) U/L Urine Color Urine Appearance (Clear) Urine pH (4.5-7.5) Ur Specific [place] (1.000-1.030) Urine Protein (Negative) Urine Glucose (UA) (Negative) Urine Ketones (Negative) Urine Blood (Negative) Urine Nitrite (Negative) Urine Bilirubin (Negative) Urine Urobilinogen (Negative) Ur Leukocyte Esterase (Negative) Urine WBC (Auto) (0-5) /hpf Urine RBC (Auto) (0-4) /hpf U Hyaline Cast (Auto) (0-5) /lpf U Epithel Cells (Auto) (0-5) /lpf Urine Bacteria (Auto) (Negative) Ur Renal Epithelial Cell Amorphous Sediment (None Prsent) Nasal Screen MRSA (PCR) (Negative) Salicylates (2.8-20) mg/dl Urine Opiates Screen Neg (Neg) Ur Methadone, Qual Neg (Neg) Acetaminophen (10-30) ug/ml Urine Barbiturates Neg (Neg) Ur Phencyclidine (PCP) Neg (Neg) U Amphetamin/Meth Scrn Neg (Neg) MDMA (Ecstasy) Screen Neg (Neg) U Benzodiazepines Scrn Neg (Neg) Ur Cocaine Metabolite Neg (Neg) U Marijuana (THC) Screen Neg (Neg) Ethyl Alcohol mg/dL (0-3) mg/dl 03/23/18 03/23/18 03/23/18 Range/Units 14:03 13:22 13:22 WBC (4.8-10.8) K/uL RBC (4.7-6.1) M/uL Hgb (14.0-18.0) g/dL Hct (42-52) % MCV (80-100) fL MCH (25-34) pg MCHC (32-36) g/dL RDW Std Deviation (36.4-46.3) fL RDW Coeff of Mani (11.5-14.5) % Plt Count (130-400) K/uL MPV (7.4-10.4) fL Immature Gran % (Auto) % Neut % (Auto) % Lymph % (Auto) % [place] % (Auto) % Eos % (Auto) % Baso % (Auto) % Immature Gran # (Auto) (0.00-0.02) K/uL Neut # (Auto) (1.4-6.5) K/uL Lymph # (Auto) (1.2-3.4) K/uL [place] # (Auto) (0.11-0.59) K/uL Eos # (Auto) (0-0.5) K/uL Baso # (Auto) (0-0.2) K/uL PT (9.0-12.0) Seconds INR (0.9-1.1) VBG pH (7.36-7.41) VBG pCO2 (38-50) mmHg VBG pO2 mmHg VBG HCO3 mmol/L VBG O2 Saturation % VBG Base Excess mEq/L Barometric Pressure mm/Hg Sodium 141 (136-145) mmol/L Potassium 3.8 (3.5-5.1) mmol/L Chloride 109 H (98-107) mmol/L Carbon Dioxide 26 (21-32) mmol/L Anion Gap 6.0 (3-11) BUN 15 (7-18) mg/dl Creatinine 0.98 (0.6-1.4) mg/dl Est Cr Clr Drug Dosing 129.1 ml/min Est GFR ( Amer) 129.0 Est GFR (Non-Af Amer) 111.3 BUN/Creatinine Ratio 15.3 (10-20) Glucose 87 (70-99) mg/dl Lactate (0.4-2.0) mmol/L Calcium 8.9 (8.5-10.1) mg/dl Phosphorus (2.5-4.9) mg/dl Magnesium 2.0 (1.8-2.4) mg/dl Total Bilirubin 0.5 (0.2-1) mg/dl AST 19 (15-37) U/L ALT 32 (12-78) U/L Alkaline Phosphatase 59 (45-117) U/L Total Creatine Kinase 345 H (39-308) U/L Troponin I < 0.015 (0-0.045) ng/ml Total Protein 7.6 (6.4-8.2) gm/dl Albumin 4.0 (3.4-5.0) gm/dl Globulin 3.6 (2.5-4.0) gm/dl Albumin/Globulin Ratio 1.1 (0.9-2) Lipase 61 L (73-393) U/L Urine Color Urine Appearance (Clear) Urine pH (4.5-7.5) Ur Specific [place] (1.000-1.030) Urine Protein (Negative) Urine Glucose (UA) (Negative) Urine Ketones (Negative) Urine Blood (Negative) Urine Nitrite (Negative) Urine Bilirubin (Negative) Urine Urobilinogen (Negative) Ur Leukocyte Esterase (Negative) Urine WBC (Auto) (0-5) /hpf Urine RBC (Auto) (0-4) /hpf U Hyaline Cast (Auto) (0-5) /lpf U Epithel Cells (Auto) (0-5) /lpf Urine Bacteria (Auto) (Negative) Ur Renal Epithelial Cell Amorphous Sediment (None Prsent) Nasal Screen MRSA (PCR) (Negative) Salicylates 18.9 (2.8-20) mg/dl Urine Opiates Screen (Neg) Ur Methadone, Qual (Neg) Acetaminophen < 2 L (10-30) ug/ml Urine Barbiturates (Neg) Ur Phencyclidine (PCP) (Neg) U Amphetamin/Meth Scrn (Neg) MDMA (Ecstasy) Screen (Neg) U Benzodiazepines Scrn (Neg) Ur Cocaine Metabolite (Neg) U Marijuana (THC) Screen (Neg) Ethyl Alcohol mg/dL < 3.0 (0-3) mg/dl 03/23/18 03/23/18 Range/Units 13:22 13:22 WBC 5.16 (4.8-10.8) K/uL RBC 4.77 (4.7-6.1) M/uL Hgb 15.4 (14.0-18.0) g/dL Hct 44.4 (42-52) % MCV 93.1 (80-100) fL MCH 32.3 (25-34) pg MCHC 34.7 (32-36) g/dL RDW Std Deviation 44.9 (36.4-46.3) fL RDW Coeff of Mani 13.2 (11.5-14.5) % Plt Count 213 (130-400) K/uL MPV 11.0 H (7.4-10.4) fL Immature Gran % (Auto) 0.2 % Neut % (Auto) 46.6 % Lymph % (Auto) 44.4 % [place] % (Auto) 7.0 % Eos % (Auto) 1.2 % Baso % (Auto) 0.6 % Immature Gran # (Auto) 0.01 (0.00-0.02) K/uL Neut # (Auto) 2.41 (1.4-6.5) K/uL Lymph # (Auto) 2.29 (1.2-3.4) K/uL Hawkins # (Auto) 0.36 (0.11-0.59) K/uL Eos # (Auto) 0.06 (0-0.5) K/uL Baso # (Auto) 0.03 (0-0.2) K/uL PT 11.0 (9.0-12.0) Seconds INR 1.1 (0.9-1.1) VBG pH (7.36-7.41) VBG pCO2 (38-50) mmHg VBG pO2 mmHg VBG HCO3 mmol/L VBG O2 Saturation % VBG Base Excess mEq/L Barometric Pressure mm/Hg Sodium (136-145) mmol/L Potassium (3.5-5.1) mmol/L Chloride (98-107) mmol/L Carbon Dioxide (21-32) mmol/L Anion Gap (3-11) BUN (7-18) mg/dl Creatinine (0.6-1.4) mg/dl Est Cr Clr Drug Dosing ml/min Est GFR ( Amer) Est GFR (Non-Af Amer) BUN/Creatinine Ratio (10-20) Glucose (70-99) mg/dl Lactate (0.4-2.0) mmol/L Calcium (8.5-10.1) mg/dl Phosphorus (2.5-4.9) mg/dl Magnesium (1.8-2.4) mg/dl Total Bilirubin (0.2-1) mg/dl AST (15-37) U/L ALT (12-78) U/L Alkaline Phosphatase (45-117) U/L Total Creatine Kinase (39-308) U/L Troponin I (0-0.045) ng/ml Total Protein (6.4-8.2) gm/dl Albumin (3.4-5.0) gm/dl Globulin (2.5-4.0) gm/dl Albumin/Globulin Ratio (0.9-2) Lipase (73-393) U/L Urine Color Urine Appearance (Clear) Urine pH (4.5-7.5) Ur Specific [place] (1.000-1.030) Urine Protein (Negative) Urine Glucose (UA) (Negative) Urine Ketones (Negative) Urine Blood (Negative) Urine Nitrite (Negative) Urine Bilirubin (Negative) Urine Urobilinogen (Negative) Ur Leukocyte Esterase (Negative) Urine WBC (Auto) (0-5) /hpf Urine RBC (Auto) (0-4) /hpf U Hyaline Cast (Auto) (0-5) /lpf U Epithel Cells (Auto) (0-5) /lpf Urine Bacteria (Auto) (Negative) Ur Renal Epithelial Cell Amorphous Sediment (None Prsent) Nasal Screen MRSA (PCR) (Negative) Salicylates (2.8-20) mg/dl Urine Opiates Screen (Neg) Ur Methadone, Qual (Neg) Acetaminophen (10-30) ug/ml Urine Barbiturates (Neg) Ur Phencyclidine (PCP) (Neg) U Amphetamin/Meth Scrn (Neg) MDMA (Ecstasy) Screen (Neg) U Benzodiazepines Scrn (Neg) Ur Cocaine Metabolite (Neg) U Marijuana (THC) Screen (Neg) Ethyl Alcohol mg/dL (0-3) mg/dl Medications Administered Current Inpatient Medications Acetaminophen (Tylenol) 650 mg PO Q4H PRN PRN Reason: pain/fever Stop: 04/22/18 19:55 Sodium Bicarbonate 150 meq/ (Dextrose) 1,150 mls @ 250 mls/hr IV .Q4H36M BECKA Stop: 04/22/18 18:14 Last Admin: 03/24/18 06:46 Dose: 250 mls/hr Pantoprazole Sodium 40 mg/ (Syringe) 10 mls @ 5 mls/min IV BID BECKA Stop: 04/22/18 20:59 Last Admin: 03/24/18 07:56 Dose: 5 mls/min Ondansetron HCl (Zofran) 4 mg IV Q6H PRN PRN Reason: Nausea Stop: 04/22/18 19:55 Resident Activity Tracking Resident Involvement: Resident Care Provided Care Provided: Adult [facility] Medicine _ (1) Suicide gesture Encounter type: initial encounter Qualified Code(s): X83.8XXA - Intentional self-harm by other specified means, initial encounter (2) Depression Active/Remission status: Depression Type: unspecified Major depression episode severity: Major depression recurrence: Psychotic features: Trimester: Qualified Code(s): F32.9 - Major depressive disorder, single episode, unspecified (3) Aspirin overdose Encounter type: initial encounter Injury intent: intentional self-harm Qualified Code(s): T39.012A - Poisoning by aspirin, intentional self-harm, initial encounter
[2018-03-24 10:01] LABS: Base Excess VBG 2.7 mEq/L; Oxygen Saturation VBG 89.1 %; pH VBG 7.48 (7.36-7.41)
[2018-03-24 10:34] LABS: BUN Creatinine Ratio 7.5 (10-20); Calcium 7.5 mg/dl (8.5-10.1); Creatinine Clr Calc Pharmacy 71.9 ml/min; Est GFR (African American) 63.6; Est GFR (Non-African American) 54.8; Potassium 3.1 mmol/L (3.5-5.1)
[2018-03-24] MEDS ORDERED: POTASSIUM CHLORIDE 10 MEQ TABCR PO STA (10:43)
--- NOTE | 2018-03-24 10:43 | Critical Care Progress Note ---
Date of Service March 24, 2018 Supervising Physician Co-Signing Physician Notes I have seen and examined this patient with Dr. Laz Tello and agree with his evaluation and plan of care as recommended. The Salicylate level is 28.6 and according to the poison control, the Bicarb drip can be D/Valdemar once the level is below 30. His renal function is deteriorating further with creatinine level of 1.79. Currently he is on IV Fluids D5NS at 125 cc/hr. D/W the Student Officer, Dr. Paulson and she agrees with the IV fluids and replacements of the electrolytes and repeat BMP this afternoon and if it is worsening, will evaluate the patient. In the mean time, will continue with current plan of care as prescribed. Also the patient has been excepted by inpatient Psyche unit. The patient is not yet medically cleared because of her renal function, once start improving, he can be discharged to the inpatient psyche unit. D/W the Hospitalist Dr. Bautista about the plan of care. Spent greater than 35 minutes of critical care time. Dr. Akbar SUAREZ. Physical Exam 2 Vital Signs (Past 24 Hours): Last Vital Signs Temp 36.5 C 03/24/18 08:00 Pulse 85 03/24/18 10:00 Resp 18 03/24/18 08:00 BP 112/47 L 03/24/18 10:00 Pulse Ox 94 03/24/18 10:00
[2018-03-24] MEDS: D5W AND NSS 1,000 ML IV SCH ×2 (10:58→19:26)
--- NOTE | 2018-03-24 11:04 | Medical Student H&P ---
Date of Service March 24, 2018 Impression / Recommendations Impression This is a 17-year-old man with a history of depression who is admitted to the ICU after attempted suicide with aspirin overdose. His depressed mood, sleep disturbance, inability to concentrate, low energy, anhedonia, slow thought processes, and feelings of hopelessness are all consistent with major depressive disorder. He denies having manic symptoms. 1. Aspirin overdose - Aspirin levels are trending down. - Only residual symptom is tinnitus. - Anticipate transfer to medical floor from ICU. 2. Major depressive disorder - Recommend admission to the U. Involuntary commitment paperwork in place ( based on thought out plan of suicide if discharged) in case he refuses care. - Need for therapy to identify healthy coping strategies as well as medication. - Plan to delve into details surrounding self harm, past psychiatric hospitalizations, and thoughts of hurting others. History & Physical Identifying Data ARLYN WASHBURN is a 17-year-old M admitted on March 23, 2018 18:14 who currently lives alone. Information provided by the patient is considered to be reliable. 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 Arlyn says that his depression is "always there" but worsened when he returned to college for the spring semester. He can't think of any inciting event that triggered this. He began to have increased difficulty sleeping and only getting about 5 hours of sleep per night. He says that he has noisy neighbors that make it even more challenging to get enough sleep. In addition, his energy has decreased and he says it's "hard to focus on schoolwork." He also says, "I don't like to things I used to anymore". When asked about his mood , he says he's "tired." He says that his thought processes are slower than usual. He denies having changes in his appetite. All of these symptoms culminated in an inability to do his schoolwork as well as he liked which made him even more depressed. He says "I was unhappy with the work I was doing for school and I just thought if I was getting depressed over something simple like school, it wasn't worthwhile to keep going... I'm frustrated that I can't focus and can't do well." Arlyn has a sister with depression who once attempted suicide via overdose. Remembering this, he researched online what a lethal dose of aspirin would be and then went to a pharmacy to buy it. He then consumed about 1/2 bottle of 300 pills. Later on, he went online again to look up symptoms of aspirin overdose. He found that it might be "painful" which scared him. This prompted him to call his mom and tell her what happened. The police were called and he was escorted to our emergency room. Arlyn was diagnosed with depression at age 12. He says around that time he was hospitalized for psychiatric care in [place] but did not want to discuss details. He says that he was started on an antidepressant, but he doesn't remember the name of it. He doesn't think it helped him. Arlyn says that his doctor told him that he didn't "want him to be on medicine forever" and a joint decision between his parents and doctor was made to take him off of medication. He has received no outpatient psychiatric care since then. Arlyn was also hospitalized 1.5 years ago but again did not want to discuss details. When asked about self-injurious behavior, he says it's "not anything on a regular basis" and would not disclose means of self-harm. Arlyn denies manic symptoms such as abnormally elevated mood, little need for sleep, high productivity, or high energy. He says he feels anxious "maybe one out of every 3 days" where he says "everything feels wrong" but he "doesn't have trouble breathing or anything like that." He denies experiencing hallucinations. He admits of having thoughts of hurting others with the last thought being one week ago but was not being specific about what that means. Today Arlyn is recovering in the ICU. His only remaining symptom of the overdose is ringing in his ears. When asked about suicidal ideation today, he says that he hasn't been thinking of hurting himself in the hospital per se, but he did admit that if he were to be discharged, he had thoughts of finding a parking garage and jumping from the top. When asked about the possibility of being admitted for psychiatric care, he doesn't adamantly resist but says that he doesn't think it will work. He says that he's tried getting psychiatric help in the past, but they weren't able to help him. Allergies Allergy/AdvReac Type Severity Reaction Status Date / Time No Known Allergies Allergy Verified 03/23/18 15:03 Home Medications Home Medications Medication Instructions Recorded Confirmed Type No Known Home Medications 03/23/18 03/23/18 History Patient History Medical History Depression Family History Sister Depression Father Alcoholism Social History Current Living Situation: Alone Current Living Situation Comment: Says he has no social supports here, "never felt a part of a family unit" current occupational status: student current occupation: Works at [employer] Feels Safe at Home: Yes Safety Concerns: Feels Safe At This Time Smoking Status: Never smoker Do You Dip or Chew Tobacco: No Hx Alcohol Use: Yes Alcohol type: beer Alcohol Intake Frequency: a few times a month Hx Substance Use: No Beliefs That Will Affect Care: None Preferred Language: Slovenian Communication Ability: Effective Physical Exam Vital Signs (Past 24 Hours) Last Vital Signs Temp 36.5 C 03/24/18 08:00 Pulse 85 03/24/18 10:00 Resp 18 03/24/18 08:00 BP 112/47 L 03/24/18 10:00 Pulse Ox 94 03/24/18 10:00 Mental Examination Appearance: Well Groomed Eye Contact: Avoids Eye Contact Motor Behavior: Unremarkable Speech: Delayed Mood: Depressed Affect: Congruent and Sad Thought Process: Intact Thought Content: Slowed Thinking Hallucinations: None Insight: Fair Judgement: Poor Results & Data Medications Administered Pantoprazole Sodium 40 mg/ (Syringe) 10 mls @ 5 mls/min IV BID BECKA Stop: 04/22/18 20:59 Last Admin: 03/24/18 07:56 Dose: 5 mls/min Admin: 03/23/18 21:13 Dose: 5 mls/min
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
--- NOTE | 2018-03-24 12:09 | Psychiatric Consultation ---
Date of Consultation March 24, 2018 Impression / Recommendations Impression 17-year-old [employer] student from [place], readily admits to long-standing depression, worse in the semester after returning for the spring. He admits to a toxic ingestion of aspirin in a suicide attempt. We are recommending inpatient mental health treatment when medically cleared which he is ambivalent about at best. There is a 302 petitioner statement on the chart. He should not be allowed to leave AMA as we will proceed with a 302 if he declines voluntary treatment. (1) Aspirin overdose: 03/24 -Recommend inpatient mental health treatment when medically cleared -The patient should not be allowed to leave AMA. There is a 302 petitioner statement on the chart and we will proceed with a 302 if he declines voluntary treatment Encounter type: initial encounter Injury intent: intentional self -harm Qualified Code(s): T39.012A - Poisoning by aspirin, intentional self-harm , initial encounter Inventory Assets Strengths: [employer] student Needs: Healthy coping strategies Risk Factors Assessment Male: Yes : Yes Do You Have Access To A Gun?: No Health Problems: No Substance Use Disorders: No Family History of Suicide: No Previous Psychiatric Hospitalization: Yes Hopelessness: Yes Smoker: No Protective Factors Assessment : No Responsible for Young Children: No Employed: Yes Stable Relationships: No Psych History Identifying Data 17-year-old [employer] student who presented to the emergency department following an intentional toxic ingestion of aspirin in a suicide attempt. He has been admitted medically. We are consulted to evaluate depression. Information is gathered from the patient and considered to be reliable. Chief Complaint Overdose History of Present Illness The patient is a 17-year-old [employer] student, from [place], who reports that he has a long history of depression dating back to the age of 12. He has had 2 inpatient stays for mental health reasons in [place], the last 1-1/2 years ago. He has seen a psychiatrist in the past but is not currently in any kind of psychiatric treatment. 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 He indicates that "I am tired of things not working" and feels that it does not make any sense to continue. He therefore in his suicidality, got online and he investigated what a lethal dose of aspirin would be and proceeded to take it. It is reported that he took approximately 150 pills of 325 mg aspirin. After he took them, he looked online to see what the effects of the overdose would be and became frightened and so called his mother to report the overdose. At the time we see the patient he is seated on his bed eating his lunch. He is alert and cooperative. He continues to endorse severe depression and hopelessness and does not think having another inpatient hospitalization for mental health will work. He endorses a positive vegetative profile including impaired focus and concentration over the last few weeks, low energy, loss of interest in previously satisfying activities, some cognitive slowing, depressed mood. He denies daily anxiety but says that "once every few days" he feels anxious meaning that he feels like everything is wrong. He denies symptoms that would be congruent with a bipolar disorder. He denies ever having experienced auditory or visual hallucinations. When seen by the liaison nurse earlier in the day, he denied any active plans to harm himself here in the hospital but outside of the hospital said he was still thinking about plans to jump off of the parking garage. Past Psychiatric History Previous Psych History: Previously saw a psychiatrist in [place] and had 2 previous hospitalizations Outpatient Services: None current Previous Psych Admissions: 2 in [place] 1 5 years ago, 1 year and a half ago Do You Have Access To A Gun?: No Past Medication Trials: Has had medication trials in the past but cannot remember Allergies Allergy/AdvReac Type Severity Reaction Status Date / Time No Known Allergies Allergy Verified 03/23/18 15:03 Home Medications Home Medications Medication Instructions Recorded Confirmed Type No Known Home Medications 03/23/18 03/23/18 History Family History Sister with depression having attempted suicide. Father is an alcoholic. Substance Abuse History Patient reports drinking alcohol only on special occasions. He does occasionally use cannabis, less than 1 time per month and none lately. Personal History Living Arrangements: Dorm Born In: [place] Childhood: Raised by both parents. Mother is a physician's assistant teaching professor, father is a retired counter maker. 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 [employer]) Marital Status: Single Beliefs That Will Affect Care: None History of Legal Problems: Denies Psychological Trauma History Comment: Positive, but declines to elaborate Patient History Medical History Depression Family History Sister Depression Social History Current Living Situation: Alone Feels Safe at Home: Yes Safety Concerns: Feels Safe At This Time Smoking Status: Never smoker Do You Dip or Chew Tobacco: No Hx Alcohol Use: Yes Alcohol type: beer Alcohol Intake Frequency: a few times a month Hx Substance Use: No Beliefs That Will Affect Care: None Preferred Language: German Communication Ability: Effective Physical Exam Psychiatric Orientation: alert and cooperative Apperance: appropriately dressed and appropriately groomed Eye Contact: + fair eye contact Motor Behavior: no abnormal motor movements Speech: normal rate/rhythm/volume of speech Affect: + depressed affect and + flat affect Mood: + depressed mood Thought Process: goal directed thought process Thought Content: reality based without delusions Suicidal Thoughts: + reports suicidal thoughts, + reports suicidal plan and + reports suicidal intent Homicidal Thoughts: denies homicidal thoughts Hallucinations: no auditory hallucinations and no visual hallucinations Cognition: recent memory grossly intact, remote memory grossly intact, attention grossly intact and language grossly intact Estimated Intelligence: average estimated intelligence Insight: + impaired insight Judgement: + impaired judgement Vital Signs (Past 24 Hours) Last Vital Signs Temp 36.5 C 03/24/18 08:00 Pulse 85 03/24/18 10:00 Resp 18 03/24/18 08:00 BP 112/47 L 03/24/18 10:00 Pulse Ox 94 03/24/18 10:00 Review of Systems All systems reviewed & are unremarkable except as noted in HPI & below Ear, Nose, Mouth, Throat: + tinnitus Results & Data Medications Administered Pantoprazole Sodium 40 mg/ (Syringe) 10 mls @ 5 mls/min IV BID BECKA Stop: 04/22/18 20:59 Last Admin: 03/24/18 07:56 Dose: 5 mls/min Admin: 03/23/18 21:13 Dose: 5 mls/min Dextrose/Sodium Chloride (D5w And Nss) 1,000 mls @ 125 mls/hr IV .Q8H BECKA Stop: 04/23/18 10:59 Last Admin: 03/24/18 10:58 Dose: 125 mls/hr
[2018-03-24 14:02] LABS: BUN Creatinine Ratio 8.5 (10-20); Calcium 7.7 mg/dl (8.5-10.1); Creatinine Clr Calc Pharmacy 67.7 ml/min; Est GFR (African American) 59.1; Magnesium 2.1 mg/dl (1.8-2.4); Potassium 3.6 mmol/L (3.5-5.1)
[2018-03-24 15:40] LABS: Base Excess VBG 0.5 mEq/L; Oxygen Saturation VBG 88.3 %; pH VBG 7.4 (7.36-7.41)
[2018-03-24 16:12] LABS: BUN Creatinine Ratio 9.8 (10-20); Calcium 7.5 mg/dl (8.5-10.1); Creatinine Clr Calc Pharmacy 74.4 ml/min; Est GFR (African American) 66.3; Est GFR (Non-African American) 57.2; Potassium 3.7 mmol/L (3.5-5.1)
[2018-03-25] MEDS: D5W AND NSS 1,000 ML IV SCH (03:23)
[2018-03-25 09:05] LABS: BUN Creatinine Ratio 10.4 (10-20); Calcium 7.7 mg/dl (8.5-10.1); Creatinine Clr Calc Pharmacy 83.3 ml/min; Est GFR (African American) 75.9; Est GFR (Non-African American) 65.5; Potassium 3.8 mmol/L (3.5-5.1)
[2018-03-25] MEDS: PANTOprazole 40 MG in SYRINGE 0 ML IV SCH (09:42)
--- NOTE | 2018-03-25 15:11 | Discharge Summary ---
Date of Service March 25, 2018 Admission HPI Per Admitting Provider The patient is a 17-year-old [employer] student, from [place], who reports that he has a long history of depression dating back to the age of 12. He has had 2 inpatient stays for mental health reasons in [place], the last 1-1/2 years ago. He has seen a psychiatrist in the past but is not currently in any kind of psychiatric treatment. 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 He indicates that "I am tired of things not working" and feels that it does not make any sense to continue. He therefore in his suicidality, got online and he investigated what a lethal dose of aspirin would be and proceeded to take it. It is reported that he took approximately 150 pills of 325 mg aspirin. After he took them, he looked online to see what the effects of the overdose would be and became frightened and so called his mother to report the overdose. At the time we see the patient he is seated on his bed eating his lunch. He is alert and cooperative. He continues to endorse severe depression and hopelessness and does not think having another inpatient hospitalization for mental health will work. He endorses a positive vegetative profile including impaired focus and concentration over the last few weeks, low energy, loss of interest in previously satisfying activities, some cognitive slowing, depressed mood. He denies daily anxiety but says that "once every few days" he feels anxious meaning that he feels like everything is wrong. He denies symptoms that would be congruent with a bipolar disorder. He denies ever having experienced auditory or visual hallucinations. When seen by the liaison nurse earlier in the day, he denied any active plans to harm himself here in the hospital but outside of the hospital said he was still thinking about plans to jump off of the parking garage. Admission Exam Per Admitting Provider Constitutional: WD/WN, vitals as above Eyes: EOM intact bilaterally; no conjunctival abnormality ENMT: external ear and nose normal, oropharynx normal Neck: trachea midline, no thyromegaly normal visual inspection Respiratory: normal respiratory effort, lungs clear to auscultation no respiratory distress Cardiovascular: Rate/Rhythm: + tachycardic Heart Sounds: normal S1 and normal S2 Gastrointestinal (Abdomen): Inspection/Auscultation: abdomen normal to inspection; abdomen not distended Musculoskeletal: no cyanosis or clubbing, extremities motor strength 5/5 Skin: no rashes, warm and dry Neurologic: moves all extremities and awake Psychiatric: Orientation: alert, oriented to person and cooperative Principal Diagnosis Depression with suicide attempt Discharge Exam Constitutional WD/WN, vitals as above Eyes PERRL, conjunctivae normal, anicteric sclerae ENMT external ear and nose normal, oropharynx normal Neck trachea midline, no thyromegaly Respiratory normal respiratory effort, lungs clear to auscultation Cardiovascular Rate/Rhythm: regular rhythm and + tachycardic Heart Sounds: normal S1 and normal S2; no murmur Vessels: normal peripheral pulses Extremities: no pedal edema Gastrointestinal (Abdomen) normal bowel sounds, soft, nontender, no hepatosplenomegaly Musculoskeletal no cyanosis or clubbing, extremities motor strength 5/5 Skin no rashes, warm and dry Neurologic patellar DTR's 2+ bilat, sensation intact and PERRL, EOMI, accommodation nl, no face palsy, no dysarthria Psychiatric Orientation: alert and oriented x 3 Affect: + depressed affect (very depressed) and + flat affect Mood: + depressed mood Insight: + limited insight Judgement: + poor judgement Lymphatic no cervical or axillary lymphadenopathy Discharge Data Allergies Allergy/AdvReac Type Severity Reaction Status Date / Time No Known Allergies Allergy Verified 03/23/18 15:03 Consultations 03/23/18 17:10 ED Decision to Admit Stat 03/23/18 19:56 Consult Case Management - Discharge Planning Routine Consult Wood Products Manufacturer Routine Consult Psychiatry Routine Hospital Course (1) Aspirin overdose: Mainstay of aspirin overdose treatment is alkalization of the blood and urine to prevent salicylic acid from entering the cells. repeated VBG on 03/24 showed alkalosis as desired discussed with poison control, the salicylate level was < 30 on 03/24 so Bicarb stopped salicylate level 22 on 03/25, trending down further stopped D5 NSS at 125cc/hr in the morning on 03/25 breathing is stable, not tachypneic medically stable to discharge to inpatient mental health electrolytes stable, Cr down to 1.5 (2) Depression: As in HPI, prior hospitalization for depression ~5 years ago, and prior suicidal thoughts and intentions. - 1:1 sitter - psychiatry consulted, recommend inpatient mental health will go to inpatient mental health VOLUNTARILY (3) LOLIS (acute kidney injury): Cr up to 1.76 on 03/24, treated with aggressive IV hydration making adequate urine Cr down to 1.5 on 03/25, LOLIS resolved (4) Hypokalemia: K level normal on day of discharge (5) DVT prophylaxis: SCDs - Low risk patient Total Time Total Time Spent Total Time Spent (In Minutes): 32 minutes Total Time Includes: Examination of the Patient, Discharge Planning, Medication Reconciliation, Communication With Other Providers (long discussion with psychiatry) and Other (filling out 201/302 paperwork) Discharge Plan Discharge Items Patient Disposition: Transfer Behavioral Health Fac Reason For Visit: ASPIRIN OVERDOSE Discharge Diagnosis: Aspirin overdose, suicidal ideation Condition: Good Discharge Goals: Improve disease control, Improve function and Learn about illness Activity: Resume your previous activity Non-emergency contact: Primary Care Provider and Psychiatrist Call non-emergency contact if: you have any medication questions Diet: Regular Addtl Provider Instructions: Medications: per psychiatry Aspirin overdose: treated with bicarbonate and aggressive IV fluids kidney function went up slightly but improving quickly and safe for d/c electrolytes stable continue to stay well hydrated and get rest no permanent damage Depression: treatment inpatient psych Prescriptions: No Action No Known Home Medications RF: 0 Stand-Alone Forms: [facility] Discharge Orders: Discharge Order (Routine); Ordered 03/25/18 Ordered By: Juaquin Bautista Admission Data Admit Date/Time: 03/23/18 18:14 Attending Provider: Juaquin Bautista Admit Provider: Urbano Hylton Primary Care Provider: [facility] Other Providers: Urbano Hylton ; Sohan Brooks ; Viridiana Riley Service: Telemetry Other Interventions: Discharge Summary Assessment (RN) Last Done: 03/25/18 11:03 DC Date/Time DO NOT enter until pt leaves facility: 03/25/18 12:12
== END 2018-03-25 12:12 | DRG 918 ==
LOC: ED 13:31 → SUATTDRO 18:14 → 1E 18:14 → 2N 03-24 11:09